=== PATIENT | male | born 1945 | race Caucasian/White ===

== ENCOUNTER 2016-06-28 14:25 | Outpatient (RCR) | payer MEDICARE ==
[2016-04-30 13:20] LABS: BASOPHILS % (AUTO) 0 % (0-10); EOSINOPHILS # (AUTO) 0.1 10^3/uL (0.0-0.3); EOSINOPHILS % (AUTO) 2 % (0-10); LYMPHOCYTES # (AUTO) 0.7 X 10^3 (1.0-4.0); LYMPHOCYTES % (AUTO) 14 % (12-44); MEAN CORPUSCULAR HEMOGLOBIN 31 PG (25-34); MEAN CORPUSCULAR HGB CONC 34 G/DL (32-36); MEAN CORPUSCULAR VOLUME 91 FL (80-99); MEAN PLATELET VOLUME 9.3 FL (7.4-10.4); MONOCYTES # (AUTO) 1.2 X 10^3 (0.0-1.0); MONOCYTES % (AUTO) 23 % (0-12); NEUTROPHILS % (AUTO) 60 % (42-75); PLATELET COUNT 160 10^3/uL (130-400); RED BLOOD COUNT 4.03 10^6/uL (4.35-5.85); RED CELL DISTRIBUTION WIDTH 14.1 % (10.0-14.5)
[2016-04-30 13:49] LABS: ALBUMIN 3.9 G/DL (3.2-4.5); BILIRUBIN,TOTAL 0.7 MG/DL (0.1-1.0); CALCIUM 8.6 MG/DL (8.5-10.1); CREATININE SERUM 1.4 MG/DL (0.60-1.30); POTASSIUM 3.6 MMOL/L (3.6-5.0); TOTAL PROTEIN 6.3 G/DL (6.4-8.2)
[~2016-06-28] VITALS: Ht 180.3 cm; Wt 94.8 kg
[2016-06-28 11:08] LABS: BASOPHILS % (AUTO) 0 % (0-10); EOSINOPHILS # (AUTO) 0.1 10^3/uL (0.0-0.3); EOSINOPHILS % (AUTO) 2 % (0-10); LYMPHOCYTES # (AUTO) 0.9 X 10^3 (1.0-4.0); LYMPHOCYTES % (AUTO) 16 % (12-44); MEAN CORPUSCULAR HEMOGLOBIN 31 PG (25-34); MEAN CORPUSCULAR HGB CONC 34 G/DL (32-36); MEAN CORPUSCULAR VOLUME 91 FL (80-99); MEAN PLATELET VOLUME 9.3 FL (7.4-10.4); MONOCYTES # (AUTO) 1.1 X 10^3 (0.0-1.0); MONOCYTES % (AUTO) 20 % (0-12); NEUTROPHILS # (AUTO) 3.3 X 10^3 (1.8-7.8); NEUTROPHILS % (AUTO) 62 % (42-75); PLATELET COUNT 184 10^3/uL (130-400); RED BLOOD COUNT 4.19 10^6/uL (4.35-5.85); RED CELL DISTRIBUTION WIDTH 14.3 % (10.0-14.5); WHITE BLOOD COUNT 5.3 10^3/uL (4.3-11.0)
[2016-06-28 11:37] LABS: ALBUMIN 4.2 G/DL (3.2-4.5); BILIRUBIN,TOTAL 0.7 MG/DL (0.1-1.0); CALCIUM 8.8 MG/DL (8.5-10.1); CREATININE SERUM 1.27 MG/DL (0.60-1.30); POTASSIUM 3.9 MMOL/L (3.6-5.0); TOTAL PROTEIN 6.4 G/DL (6.4-8.2)
[~2016-06-28 14:25] MED LIST: ACET500C11 PO; ACETAMINOPHEN 325 MG TAB (TYLENOL) CANCER CTR PO PRN; ACETAMINOPHEN 500 MG TAB (TYLENOL) CANCER CTR ONE; ALLP100T PO; AMLO5TAB2 PO; ATOR40TA70 PO; CALC0.253 PO; CHOL200018 PO; FLC1T PO; HCT25T PO; HYDR-757 PO; INSU100I10 SQ; LISI20TA PO; MERCAPTOPURINE PO; NS IV SCH; OXYC-199 PO; PURINETHOL PO; RITUXIMAB FOR IV SCH; RITUXIMAB IV SCH; SIMV40TA2 PO; SIMV40TA4 PO; diphenhydrAMINE 25 MG TAB (BENADRYL) CANCER CENTER PO SCH
== END 2016-07-02 | disposition home or self-care (01) ==
LOC: ONC 14:25
PROVIDERS: ATTEND Internal Medicine Hematology & Oncology
DX: Z51.11 Encounter for antineoplastic chemotherapy (principal); C85.86 Other specified types of non-Hodgkin lymphoma, intrapelvic lymph nodes; D63.1 Anemia in chronic kidney disease; N18.3 Chronic kidney disease, stage 3 (moderate); Z79.899 Other long term (current) drug therapy; Z45.2 Encounter for adjustment and management of vascular access device
CPT/HCPCS: 36591; 80053; 83615; 85025; 96413; 96523; 99213

== ENCOUNTER 2016-10-18 08:53 | Outpatient (RCR) | payer MEDICARE ==
[2016-08-23 08:44] LABS: BASOPHILS % (AUTO) 1 % (0-10); EOSINOPHILS # (AUTO) 0.1 10^3/uL (0.0-0.3); EOSINOPHILS % (AUTO) 2 % (0-10); LYMPHOCYTES # (AUTO) 0.9 X 10^3 (1.0-4.0); LYMPHOCYTES % (AUTO) 17 % (12-44); MEAN CORPUSCULAR HEMOGLOBIN 31 PG (25-34); MEAN CORPUSCULAR HGB CONC 35 G/DL (32-36); MEAN CORPUSCULAR VOLUME 91 FL (80-99); MEAN PLATELET VOLUME 9.7 FL (7.4-10.4); MONOCYTES % (AUTO) 20 % (0-12); NEUTROPHILS # (AUTO) 3.2 X 10^3 (1.8-7.8); NEUTROPHILS % (AUTO) 61 % (42-75); PLATELET COUNT 149 10^3/uL (130-400); RED BLOOD COUNT 4.22 10^6/uL (4.35-5.85); RED CELL DISTRIBUTION WIDTH 14.3 % (10.0-14.5); WHITE BLOOD COUNT 5.2 10^3/uL (4.3-11.0)
[2016-08-23 09:08] LABS: ALBUMIN 3.8 G/DL (3.2-4.5); BILIRUBIN,TOTAL 0.7 MG/DL (0.1-1.0); CALCIUM 8.9 MG/DL (8.5-10.1); CREATININE SERUM 1.22 MG/DL (0.60-1.30); POTASSIUM 4.1 MMOL/L (3.6-5.0); TOTAL PROTEIN 6.1 G/DL (6.4-8.2)
[~2016-10-18] VITALS: Ht 180.3 cm; Wt 94.8 kg
[~2016-10-18 08:53] MED LIST changes: -ACETAMINOPHEN 500 MG TAB (TYLENOL) CANCER CTR ONE; +ALTEPLASE 2 MG (CATHFLO) CANCER CENTER IV ONE
[2016-10-18 09:15] LABS: BASOPHILS % (AUTO) 1 % (0-10); EOSINOPHILS # (AUTO) 0.1 10^3/uL (0.0-0.3); EOSINOPHILS % (AUTO) 3 % (0-10); LYMPHOCYTES # (AUTO) 0.8 X 10^3 (1.0-4.0); LYMPHOCYTES % (AUTO) 21 % (12-44); MEAN CORPUSCULAR HEMOGLOBIN 30 PG (25-34); MEAN CORPUSCULAR HGB CONC 33 G/DL (32-36); MEAN CORPUSCULAR VOLUME 91 FL (80-99); MEAN PLATELET VOLUME 9.6 FL (7.4-10.4); MONOCYTES # (AUTO) 0.8 X 10^3 (0.0-1.0); MONOCYTES % (AUTO) 19 % (0-12); NEUTROPHILS # (AUTO) 2.3 X 10^3 (1.8-7.8); NEUTROPHILS % (AUTO) 57 % (42-75); PLATELET COUNT 154 10^3/uL (130-400); RED BLOOD COUNT 4.19 10^6/uL (4.35-5.85); RED CELL DISTRIBUTION WIDTH 14.5 % (10.0-14.5); WHITE BLOOD COUNT 4.1 10^3/uL (4.3-11.0)
[2016-10-18 09:44] LABS: BILIRUBIN,TOTAL 0.7 MG/DL (0.1-1.0); CALCIUM 8.5 MG/DL (8.5-10.1); CREATININE SERUM 1.5 MG/DL (0.60-1.30); POTASSIUM 3.8 MMOL/L (3.6-5.0); TOTAL PROTEIN 6.2 G/DL (6.4-8.2)
== END 2016-10-24 | disposition home or self-care (01) ==
LOC: ONC 08:53
PROVIDERS: ATTEND Internal Medicine Hematology & Oncology
DX: Z51.11 Encounter for antineoplastic chemotherapy (principal); C85.86 Other specified types of non-Hodgkin lymphoma, intrapelvic lymph nodes; D63.1 Anemia in chronic kidney disease; N18.3 Chronic kidney disease, stage 3 (moderate); Z79.899 Other long term (current) drug therapy; Z45.2 Encounter for adjustment and management of vascular access device
CPT/HCPCS: 36591; 36593; 80053; 83615; 85025; 96413; 96523; 99213

== ENCOUNTER 2017-02-07 08:25 | Outpatient (RCR) | payer MEDICARE ==
[2016-12-13 09:07] LABS: BASOPHILS % (AUTO) 1 % (0-10); EOSINOPHILS # (AUTO) 0.1 10^3/uL (0.0-0.3); EOSINOPHILS % (AUTO) 1 % (0-10); LYMPHOCYTES # (AUTO) 1.1 X 10^3 (1.0-4.0); LYMPHOCYTES % (AUTO) 22 % (12-44); MEAN CORPUSCULAR HEMOGLOBIN 30 PG (25-34); MEAN CORPUSCULAR HGB CONC 33 G/DL (32-36); MEAN CORPUSCULAR VOLUME 91 FL (80-99); MEAN PLATELET VOLUME 9.8 FL (7.4-10.4); MONOCYTES # (AUTO) 0.9 X 10^3 (0.0-1.0); MONOCYTES % (AUTO) 18 % (0-12); NEUTROPHILS % (AUTO) 58 % (42-75); PLATELET COUNT 154 10^3/uL (130-400); RED BLOOD COUNT 4.37 10^6/uL (4.35-5.85); RED CELL DISTRIBUTION WIDTH 14.4 % (10.0-14.5); WHITE BLOOD COUNT 5.1 10^3/uL (4.3-11.0)
[2016-12-13 09:27] LABS: ALBUMIN 4.3 GM/DL (3.2-4.5); BILIRUBIN,TOTAL 0.9 MG/DL (0.1-1.0); CALCIUM 9.6 MG/DL (8.5-10.1); CREATININE SERUM 1.21 MG/DL (0.60-1.30); POTASSIUM 3.9 MMOL/L (3.6-5.0); TOTAL PROTEIN 5.9 GM/DL (6.4-8.2)
[~2017-02-07] VITALS: Ht 180.3 cm; Wt 93.9 kg
[~2017-02-07 08:25] MED LIST changes: -ALTEPLASE 2 MG (CATHFLO) CANCER CENTER IV ONE
[2017-02-07 08:56] LABS: BASOPHILS % (AUTO) 1 % (0-10); EOSINOPHILS # (AUTO) 0.1 10^3/uL (0.0-0.3); EOSINOPHILS % (AUTO) 2 % (0-10); LYMPHOCYTES # (AUTO) 0.8 X 10^3 (1.0-4.0); LYMPHOCYTES % (AUTO) 17 % (12-44); MEAN CORPUSCULAR HEMOGLOBIN 31 PG (25-34); MEAN CORPUSCULAR HGB CONC 34 G/DL (32-36); MEAN CORPUSCULAR VOLUME 91 FL (80-99); MEAN PLATELET VOLUME 9.9 FL (7.4-10.4); MONOCYTES # (AUTO) 0.9 X 10^3 (0.0-1.0); MONOCYTES % (AUTO) 19 % (0-12); NEUTROPHILS # (AUTO) 2.8 X 10^3 (1.8-7.8); NEUTROPHILS % (AUTO) 61 % (42-75); PLATELET COUNT 162 10^3/uL (130-400); RED BLOOD COUNT 4.21 10^6/uL (4.35-5.85); RED CELL DISTRIBUTION WIDTH 14.3 % (10.0-14.5); WHITE BLOOD COUNT 4.5 10^3/uL (4.3-11.0)
[2017-02-07 09:09] LABS: ALBUMIN 3.9 GM/DL (3.2-4.5); BILIRUBIN,TOTAL 0.7 MG/DL (0.1-1.0); CALCIUM 9.1 MG/DL (8.5-10.1); CREATININE SERUM 1.33 MG/DL (0.60-1.30); TOTAL PROTEIN 6.2 GM/DL (6.4-8.2)
== END 2017-02-13 | disposition home or self-care (01) ==
LOC: ONC 08:25
PROVIDERS: ATTEND Internal Medicine Hematology & Oncology
DX: Z51.11 Encounter for antineoplastic chemotherapy (principal); C85.86 Other specified types of non-Hodgkin lymphoma, intrapelvic lymph nodes; D63.1 Anemia in chronic kidney disease; N18.3 Chronic kidney disease, stage 3 (moderate); Z79.899 Other long term (current) drug therapy; Z45.2 Encounter for adjustment and management of vascular access device
CPT/HCPCS: 36591; 80053; 83615; 85025; 96413; 96415; 96523

== ENCOUNTER 2017-03-07 12:47 | Outpatient (RCR) | payer MEDICARE ==
[~2017-03-07 12:47] MED LIST changes: -ACETAMINOPHEN 325 MG TAB (TYLENOL) CANCER CTR PO PRN; -NS IV SCH; -RITUXIMAB FOR IV SCH; -RITUXIMAB IV SCH; -diphenhydrAMINE 25 MG TAB (BENADRYL) CANCER CENTER PO SCH
== END 2017-03-30 | disposition home or self-care (01) ==
LOC: ONC 12:47
PROVIDERS: ATTEND Internal Medicine Hematology & Oncology
DX: C85.86 Other specified types of non-Hodgkin lymphoma, intrapelvic lymph nodes (principal); D63.1 Anemia in chronic kidney disease; N18.3 Chronic kidney disease, stage 3 (moderate); Z79.899 Other long term (current) drug therapy; Z45.2 Encounter for adjustment and management of vascular access device
CPT/HCPCS: 96523

== ENCOUNTER 2017-05-02 08:33 | Outpatient (RCR) | payer MEDICARE ==
[2017-04-04 09:14] LABS: BASOPHILS % (AUTO) 0 % (0-10); EOSINOPHILS # (AUTO) 0.1 10^3/uL (0.0-0.3); EOSINOPHILS % (AUTO) 2 % (0-10); LYMPHOCYTES # (AUTO) 0.7 X 10^3 (1.0-4.0); LYMPHOCYTES % (AUTO) 13 % (12-44); MEAN CORPUSCULAR HEMOGLOBIN 31 PG (25-34); MEAN CORPUSCULAR HGB CONC 34 G/DL (32-36); MEAN CORPUSCULAR VOLUME 91 FL (80-99); MEAN PLATELET VOLUME 9.7 FL (7.4-10.4); MONOCYTES # (AUTO) 1.3 X 10^3 (0.0-1.0); MONOCYTES % (AUTO) 25 % (0-12); NEUTROPHILS # (AUTO) 3.1 X 10^3 (1.8-7.8); NEUTROPHILS % (AUTO) 59 % (42-75); PLATELET COUNT 161 10^3/uL (130-400); RED BLOOD COUNT 4.35 10^6/uL (4.35-5.85); WHITE BLOOD COUNT 5.2 10^3/uL (4.3-11.0)
[2017-04-04 09:33] LABS: ALBUMIN 4.2 GM/DL (3.2-4.5); BILIRUBIN,TOTAL 0.9 MG/DL (0.1-1.0); CALCIUM 9.3 MG/DL (8.5-10.1); CREATININE SERUM 1.19 MG/DL (0.60-1.30); TOTAL PROTEIN 6.8 GM/DL (6.4-8.2)
[~2017-05-02 08:33] MED LIST changes: +ACETAMINOPHEN 325 MG TAB (TYLENOL) CANCER CTR PO PRN; +NS IV SCH; +RITUXIMAB FOR IV SCH; +RITUXIMAB IV SCH; +diphenhydrAMINE 25 MG TAB (BENADRYL) CANCER CENTER PO SCH
== END 2017-05-29 11:38 | disposition home or self-care (01) ==
LOC: ONC 08:33
PROVIDERS: ATTEND Internal Medicine Hematology & Oncology
DX: Z51.11 Encounter for antineoplastic chemotherapy (principal); C85.86 Other specified types of non-Hodgkin lymphoma, intrapelvic lymph nodes; D63.1 Anemia in chronic kidney disease; N18.3 Chronic kidney disease, stage 3 (moderate); Z79.899 Other long term (current) drug therapy
CPT/HCPCS: 36591; 80053; 83615; 85025; 96413; 96523

== ENCOUNTER 2017-08-22 08:29 | Outpatient (RCR) | payer MEDICARE ==
[2017-05-30 10:50] LABS: BASOPHILS # (AUTO) 0.1 10^3/uL (0.0-0.1); BASOPHILS % (AUTO) 1 % (0-10); EOSINOPHILS # (AUTO) 0.2 10^3/uL (0.0-0.3); EOSINOPHILS % (AUTO) 3 % (0-10); HEMATOCRIT 38 % (40-54); HEMOGLOBIN 12.9 G/DL (13.3-17.7); LYMPHOCYTES # (AUTO) 1.4 X 10^3 (1.0-4.0); LYMPHOCYTES % (AUTO) 24 % (12-44); MEAN CORPUSCULAR HEMOGLOBIN 31 PG (25-34); MEAN CORPUSCULAR HGB CONC 34 G/DL (32-36); MEAN CORPUSCULAR VOLUME 91 FL (80-99); MEAN PLATELET VOLUME 9.5 FL (7.4-10.4); MONOCYTES # (AUTO) 1.2 X 10^3 (0.0-1.0); MONOCYTES % (AUTO) 21 % (0-12); NEUTROPHILS # (AUTO) 3.1 X 10^3 (1.8-7.8); NEUTROPHILS % (AUTO) 52 % (42-75); PLATELET COUNT 179 10^3/uL (130-400); RED BLOOD COUNT 4.17 10^6/uL (4.35-5.85); RED CELL DISTRIBUTION WIDTH 14.3 % (10.0-14.5); WHITE BLOOD COUNT 5.9 10^3/uL (4.3-11.0)
[2017-05-30 11:12] LABS: ALANINE AMINOTRANSFERASE 30 U/L (0-55); ALBUMIN 4.1 GM/DL (3.2-4.5); ALKALINE PHOSPHATASE 136 U/L (40-136); BILIRUBIN,TOTAL 0.8 MG/DL (0.1-1.0); BUN/CREATININE RATIO 23; CALCIUM 9.2 MG/DL (8.5-10.1); CARBON DIOXIDE 26 MMOL/L (21-32); CHLORIDE 101 MMOL/L (98-107); CREATININE SERUM 1.18 MG/DL (0.60-1.30); GFR ESTIMATED > 60; GLUCOSE 113 MG/DL (70-105); POTASSIUM 3.7 MMOL/L (3.6-5.0); SODIUM 137 MMOL/L (135-145); TOTAL PROTEIN 6.7 GM/DL (6.4-8.2)
[~2017-08-22] VITALS: Ht 180.3 cm; Wt 95.3 kg
== END 2017-08-28 | disposition home or self-care (01) ==
LOC: ONC 08:29
PROVIDERS: ATTEND Internal Medicine Hematology & Oncology
DX: Z51.11 Encounter for antineoplastic chemotherapy (principal); C85.86 Other specified types of non-Hodgkin lymphoma, intrapelvic lymph nodes; E11.22 Type 2 diabetes mellitus with diabetic chronic kidney disease; I12.9 Hypertensive chronic kidney disease with stage 1 through stage 4 chronic kidney disease, or unspecified chronic kidney disease; D63.1 Anemia in chronic kidney disease; N18.3 Chronic kidney disease, stage 3 (moderate); Z79.899 Other long term (current) drug therapy; Z79.4 Long term (current) use of insulin; Z45.2 Encounter for adjustment and management of vascular access device
CPT/HCPCS: 36591; 80053; 83615; 85025; 96413; 96523

== ENCOUNTER 2017-12-09 08:31 | Outpatient (RCR) | payer MEDICARE ==
[2017-09-16 13:30] LABS: BASOPHILS % (AUTO) 1 % (0-10); EOSINOPHILS # (AUTO) 0.1 10^3/uL (0.0-0.3); EOSINOPHILS % (AUTO) 2 % (0-10); HEMATOCRIT 40 % (40-54); HEMOGLOBIN 13.9 G/DL (13.3-17.7); LYMPHOCYTES # (AUTO) 1.3 X 10^3 (1.0-4.0); LYMPHOCYTES % (AUTO) 23 % (12-44); MEAN CORPUSCULAR HEMOGLOBIN 31 PG (25-34); MEAN CORPUSCULAR HGB CONC 35 G/DL (32-36); MEAN CORPUSCULAR VOLUME 89 FL (80-99); MEAN PLATELET VOLUME 9.8 FL (7.4-10.4); MONOCYTES # (AUTO) 1.1 X 10^3 (0.0-1.0); MONOCYTES % (AUTO) 21 % (0-12); NEUTROPHILS # (AUTO) 2.9 X 10^3 (1.8-7.8); NEUTROPHILS % (AUTO) 53 % (42-75); PLATELET COUNT 174 10^3/uL (130-400); RED BLOOD COUNT 4.48 10^6/uL (4.35-5.85); RED CELL DISTRIBUTION WIDTH 13.9 % (10.0-14.5); WHITE BLOOD COUNT 5.4 10^3/uL (4.3-11.0)
[2017-09-16 13:52] LABS: ALBUMIN 4.3 GM/DL (3.2-4.5); BILIRUBIN,TOTAL 0.7 MG/DL (0.1-1.0); CALCIUM 9.1 MG/DL (8.5-10.1); CREATININE SERUM 1.43 MG/DL (0.60-1.30); POTASSIUM 3.7 MMOL/L (3.6-5.0); TOTAL PROTEIN 6.7 GM/DL (6.4-8.2)
== END 2017-12-15 | disposition home or self-care (01) ==
LOC: ONC 08:31
PROVIDERS: ATTEND Internal Medicine Hematology & Oncology
DX: Z51.11 Encounter for antineoplastic chemotherapy (principal); C85.86 Other specified types of non-Hodgkin lymphoma, intrapelvic lymph nodes; E11.22 Type 2 diabetes mellitus with diabetic chronic kidney disease; I12.9 Hypertensive chronic kidney disease with stage 1 through stage 4 chronic kidney disease, or unspecified chronic kidney disease; D63.1 Anemia in chronic kidney disease; N18.3 Chronic kidney disease, stage 3 (moderate); Z79.899 Other long term (current) drug therapy; Z79.4 Long term (current) use of insulin; Z45.2 Encounter for adjustment and management of vascular access device
CPT/HCPCS: 36591; 80053; 83615; 85025; 96413; 96523

== ENCOUNTER → 2018-01-20 | Outpatient (CLI) | payer MEDICARE ==
[~2018-01-20] MED LIST changes: -ACETAMINOPHEN 325 MG TAB (TYLENOL) CANCER CTR PO PRN; -NS IV SCH; -RITUXIMAB FOR IV SCH; -RITUXIMAB IV SCH; -diphenhydrAMINE 25 MG TAB (BENADRYL) CANCER CENTER PO SCH
[2018-01-20 10:06] LABS: ALBUMIN 4.4 GM/DL (3.2-4.5); CALCIUM 9.5 MG/DL (8.5-10.1); CREATININE SERUM 1.29 MG/DL (0.60-1.30); PHOSPHORUS 3.4 MG/DL (2.3-4.7); POTASSIUM 3.8 MMOL/L (3.6-5.0); URIC ACID 6.8 MG/DL (2.6-7.2)
== END ==
LOC: LAB 09:29
PROVIDERS: ATTEND Internal Medicine Nephrology
DX: N18.3 Chronic kidney disease, stage 3 (moderate) (principal)
CPT/HCPCS: 36415; 80069; 82550; 84550

== ENCOUNTER 2018-02-27 10:34 | Outpatient (RCR) | payer MEDICARE ==
--- NOTE | 2018-02-24 14:09 | Diagnostic Imaging Report ---
EXAMINATION: CT of the neck, chest, abdomen, pelvis with contrast. INDICATION: Lymphoma. TECHNIQUE: Contiguous axial sections were taken from the midportion of the skull to the pubic symphysis following administration of intravenous contrast. Oral contrast was also administered. A delayed series through the abdomen and pelvis was obtained as well. Sagittal and coronal reconstructed images were also performed. HISTORY: The previous PET/CT exam performed on 03/30/2010 failed to show any sign of neoplastic disease. The CT abdomen exam of 03/10/2014 failed to show any evidence for neoplasm as well although that study did identify acute appendicitis. FINDINGS: The images through the neck fail to show any sign of a mass or adenopathy. The parotid and submandibular glands are unremarkable. In the interval since the previous study, a small 6.6 mm rounded area of low density has developed in the right lobe of the thyroid. There is also now a 3 mm low density nodule in the left lobe of the thyroid. I suspect that these findings are benign but I would recommend that ultrasound be performed for further study. The tracheal air shadow is not compressed or deviated. The intracranial contents, where visualized, are unremarkable. The orbits are symmetrical and within normal limits. The sinuses are generally clear. The images through the thorax show that the heart size is within normal limits. There are coronary artery calcifications evident. There is no mediastinal or hilar adenopathy. There is no sign of any axillary adenopathy either. The lungs are generally clear and well aerated. There is no pleural effusion identified. The aorta is not abnormally dilated and there is no sign of a dissection. There is no defect within the pulmonary arteries to indicate a pulmonary embolus. The liver, spleen, pancreas, adrenals, gallbladder, kidneys, aorta, and inferior vena cava are unremarkable for an acute abnormality. In the interval since the prior exam, the 2.1 cm cyst in the midportion of the right kidney has increased in size. This cyst now measures 4.5 cm. The stomach is partially filled with oral contrast and consequently difficult to assess. There is no retrocrural, periaortic, retroperitoneal, iliac chain, or inguinal adenopathy evident. The images through the pelvis show that there is diverticulosis of the sigmoid and descending colon without evidence for acute diverticulitis. The appendix is surgically absent. The urinary bladder and prostate gland are grossly unremarkable. The scar formation in the region of the right inguinal canal seen on the previous exam is again evident and no different. The bone windows show no sign of a fracture or of a destructive lesion; however, there are irregular areas of mixed density involving both femoral heads. These findings are similar to the prior exam. In addition there are areas of increased density within the right fourth, seventh and ninth ribs and in the left ninth rib. These findings could be secondary to neoplastic disease as they do represent a change from the previous study. IMPRESSION: 1. There is no acute abnormality of the neck, chest, abdomen, or pelvis. 2. There is no adenopathy identified to suggest recurrent lymphoma. The spleen is also normal in appearance. However the areas of increased density within the ribs bilaterally could be related to neoplastic disease. A nuclear medicine bone scan is pending for further study. 3. Ultrasound would be recommended for further evaluation of the low density nodules in each lobe of the thyroid. 4. There is diverticulosis of the sigmoid colon without evidence for acute diverticulitis. Dictated by: Dictated on workstation # [id number]
[~2018-02-27 10:34] MED LIST changes: +1/2 NS IV SCH; +BARIUM SUSPENSION 2.1% (VANILLA SILQ) 450 ML PO ONE; +CATHETER FLUSH 10 ML SYR IV PRN; +IOHEXOL 350 MG/ML 100 ML (OMNIPAQUE 350) VIAL IV ONE; +NS 100 ML (IVPB) BAG IV ONE; +SODIUM BICARBONATE IV SCH
== END 2018-02-28 | disposition home or self-care (01) ==
LOC: ONC 10:34
PROVIDERS: ATTEND Internal Medicine Hematology & Oncology
DX: C85.86 Other specified types of non-Hodgkin lymphoma, intrapelvic lymph nodes (principal); E11.22 Type 2 diabetes mellitus with diabetic chronic kidney disease; I12.9 Hypertensive chronic kidney disease with stage 1 through stage 4 chronic kidney disease, or unspecified chronic kidney disease; D63.1 Anemia in chronic kidney disease; N18.3 Chronic kidney disease, stage 3 (moderate); Z79.899 Other long term (current) drug therapy; Z79.4 Long term (current) use of insulin
CPT/HCPCS: 70491; 71260; 74176; 96360; 96361; 99213

== ENCOUNTER → 2018-05-12 | Outpatient (CLI) | payer MEDICARE ==
[~2018-05-12] MED LIST changes: -1/2 NS IV SCH; +LIDOCAINE 1% INJ 20 ML 20 ML VIAL ONE; -NS 100 ML (IVPB) BAG IV ONE; +NS 250 ML (IVPB) BAG IV ONE; +RECEIVED CONTRAST (Hold Metformin) IV SCH; -SODIUM BICARBONATE IV SCH
--- NOTE | 2018-05-12 14:53 | Diagnostic Imaging Report ---
INDICATION: Non-Hodgkin's lymphoma. TECHNIQUE: Patient was administered 25.3 mCi technetium 99m MDP intravenously and whole-body imaging was performed after a three hour delay. COMPARISON: Correlation is made with prior exam from 02/24/2018. FINDINGS: Uptake of activity by the axial and appendicular skeleton is seen. There is uptake by the kidneys with excretion to the urinary bladder. Abnormal uptake in the ribs bilaterally appear similar to prior exam. There is also increased uptake involving the distal portion of the right humerus with more significant uptake identified in the distal aspect of the left humerus. These areas are concerning for neoplastic involvement. No other suspicious foci are seen. IMPRESSION: Bilateral rib and bilateral humerus uptake, similar to the examination from 02/24/2018. No new foci of abnormal tracer accumulation is identified. Dictated by: Dictated on workstation # [id number]
== END ==
LOC: CARD 11:00
PROVIDERS: ATTEND Internal Medicine Hematology & Oncology
DX: Z01.89 Encounter for other specified special examinations (principal); C85.90 Non-Hodgkin lymphoma, unspecified, unspecified site
CPT/HCPCS: 78306

== ENCOUNTER 2018-06-16 08:22 | Outpatient (RCR) | payer MEDICARE ==
[2018-04-17 09:59] LABS: BASOPHILS % (AUTO) 0 % (0-10); EOSINOPHILS % (AUTO) 1 % (0-10); HEMATOCRIT 39 % (40-54); HEMOGLOBIN 13.4 G/DL (13.3-17.7); LYMPHOCYTES # (AUTO) 0.6 X 10^3 (1.0-4.0); LYMPHOCYTES % (AUTO) 12 % (12-44); MEAN CORPUSCULAR HEMOGLOBIN 31 PG (25-34); MEAN CORPUSCULAR HGB CONC 34 G/DL (32-36); MEAN CORPUSCULAR VOLUME 91 FL (80-99); MEAN PLATELET VOLUME 8.6 FL (7.4-10.4); MONOCYTES # (AUTO) 1.1 X 10^3 (0.0-1.0); MONOCYTES % (AUTO) 22 % (0-12); NEUTROPHILS # (AUTO) 3.4 X 10^3 (1.8-7.8); NEUTROPHILS % (AUTO) 65 % (42-75); PLATELET COUNT 187 10^3/uL (130-400); RED BLOOD COUNT 4.31 10^6/uL (4.35-5.85); RED CELL DISTRIBUTION WIDTH 14.3 % (10.0-14.5); WHITE BLOOD COUNT 5.2 10^3/uL (4.3-11.0)
[2018-04-17 10:17] LABS: ALBUMIN 4.5 GM/DL (3.2-4.5); BILIRUBIN,TOTAL 0.7 MG/DL (0.1-1.0); CALCIUM 9.7 MG/DL (8.5-10.1); CREATININE SERUM 1.41 MG/DL (0.60-1.30); POTASSIUM 4.2 MMOL/L (3.6-5.0)
[2018-05-08 11:45] LABS: BASOPHILS % (AUTO) 0 % (0-10); EOSINOPHILS # (AUTO) 0.1 10^3/uL (0.0-0.3); EOSINOPHILS % (AUTO) 1 % (0-10); HEMATOCRIT 37 % (40-54); HEMOGLOBIN 12.5 G/DL (13.3-17.7); LYMPHOCYTES # (AUTO) 1.1 X 10^3 (1.0-4.0); LYMPHOCYTES % (AUTO) 23 % (12-44); MEAN CORPUSCULAR HEMOGLOBIN 31 PG (25-34); MEAN CORPUSCULAR HGB CONC 34 G/DL (32-36); MEAN CORPUSCULAR VOLUME 93 FL (80-99); MEAN PLATELET VOLUME 9.3 FL (7.4-10.4); MONOCYTES # (AUTO) 1.1 X 10^3 (0.0-1.0); MONOCYTES % (AUTO) 22 % (0-12); NEUTROPHILS # (AUTO) 2.7 X 10^3 (1.8-7.8); NEUTROPHILS % (AUTO) 54 % (42-75); PLATELET COUNT 179 10^3/uL (130-400); RED CELL DISTRIBUTION WIDTH 14.5 % (10.0-14.5)
[2018-05-08 12:12] LABS: ALBUMIN 4.3 GM/DL (3.2-4.5); BILIRUBIN,TOTAL 0.7 MG/DL (0.1-1.0); CALCIUM 9.3 MG/DL (8.5-10.1); CREATININE SERUM 1.24 MG/DL (0.60-1.30); TOTAL PROTEIN 6.5 GM/DL (6.4-8.2)
[~2018-06-16 08:22] MED LIST changes: +1/2 NS IV SCH; +ALTEPLASE 2 MG (CATHFLO) CANCER CENTER IV ONE; -BARIUM SUSPENSION 2.1% (VANILLA SILQ) 450 ML PO ONE; -CATHETER FLUSH 10 ML SYR IV PRN; -IOHEXOL 350 MG/ML 100 ML (OMNIPAQUE 350) VIAL IV ONE; -LIDOCAINE 1% INJ 20 ML 20 ML VIAL ONE; -NS 250 ML (IVPB) BAG IV ONE; -RECEIVED CONTRAST (Hold Metformin) IV SCH; +SODIUM BICARBONATE IV SCH
== END 2018-07-16 | disposition home or self-care (01) ==
LOC: ONC 08:22
PROVIDERS: ATTEND Internal Medicine Hematology & Oncology
DX: C85.86 Other specified types of non-Hodgkin lymphoma, intrapelvic lymph nodes (principal); E11.22 Type 2 diabetes mellitus with diabetic chronic kidney disease; I12.9 Hypertensive chronic kidney disease with stage 1 through stage 4 chronic kidney disease, or unspecified chronic kidney disease; D63.1 Anemia in chronic kidney disease; N18.3 Chronic kidney disease, stage 3 (moderate); Z79.899 Other long term (current) drug therapy; Z79.4 Long term (current) use of insulin
CPT/HCPCS: 36415; 36593; 80053; 83615; 85025; 96365; 96366; 96523; 99213

== ENCOUNTER → 2018-09-11 | Outpatient (CLI) | payer MEDICARE ==
[~2018-09-11] MED LIST changes: -1/2 NS IV SCH; -ALTEPLASE 2 MG (CATHFLO) CANCER CENTER IV ONE; +BARIUM SUSPENSION 2.1% (VANILLA SILQ) 450 ML PO ONE; +HOLD METFORMIN - RECEIVED CONTRAST 20 ML VIAL IV SCH; +IOHEXOL 350 MG/ML 100 ML (OMNIPAQUE 350) VIAL IV ONE; +NS 100 ML (IVPB) BAG IV ONE; -SODIUM BICARBONATE IV SCH
--- NOTE | 2018-09-11 14:11 | Diagnostic Imaging Report ---
INDICATION: Follicular lymphoma. TECHNIQUE: Pre- and post-contrast axial imaging through the abdomen and pelvis with postcontrast axial imaging through the neck and chest was performed. COMPARISON: Comparison is made with prior CT from 05/12/2018. CT NECK: The visualized intracranial structures are unremarkable. Posterior nasopharynx, oropharynx, and larynx are unremarkable. Tiny low densities in both lobes of the thyroid gland appear stable. Bilateral submandibular and parotid glands are unremarkable. No cervical lymphadenopathy is detected. IMPRESSION: Stable CT neck since exam from 05/12/2018. No cervical lymphadenopathy is identified. CT CHEST: No axillary lymphadenopathy is identified. No mediastinal or hilar lymphadenopathy is identified. No pericardial or pleural fluid is detected. There is pleural thickening noted posteriorly in the right mid and lower posterior chest. Lungs are clear. No parenchymal mass, nodule, or infiltrate is identified. Sclerosis of the right lateral fourth rib with some associated pleural thickening appears to be increased when compared with prior exam. Sclerosis of the right posterolateral seventh rib with associated pleural thickening is also seen. Sclerosis of the left posterior 9th and 11th ribs is unchanged. IMPRESSION: 1. No evidence of thoracic lymphadenopathy. There is some increase in the amount of pleural thickening in the right chest when compared with prior exam, particularly at the level of the sclerosis of the right lateral fourth rib. The pleural thickening posteriorly at the base also may be slightly more prominent. No pulmonary parenchymal abnormality is seen. CT ABDOMEN AND PELVIS: The liver and gallbladder are unremarkable. No liver mass is seen. The pancreas and spleen are unremarkable. No adrenal mass is detected. Right renal cyst is stable. Left kidney is unremarkable. The aorta is non-aneurysmal. No central retroperitoneal or mesenteric lymphadenopathy is seen. Small and large bowel loops are normal in caliber. There appears to be diverticulosis of the sigmoid but no evidence of acute diverticulitis. No definite pelvic lymphadenopathy is identified. The bladder is unremarkable. Areas of sclerosis involving the left iliac bone appear to be stable. There is also some sclerosis of the right iliac bone, stable. IMPRESSION: Overall stable CT abdomen and pelvis when compared with examination from 05/12/2018. Dictated by: Dictated on workstation # [id number]
--- NOTE | 2018-09-11 19:36 | Diagnostic Imaging Report ---
INDICATION: Follicular lymphoma. TECHNIQUE: Patient was administered 24.6 mCi of technetium-99m MDP intravenously and whole-body imaging was performed after three-hour delay. COMPARISON: Correlation is made with prior exam from 05/12/2018. FINDINGS: Normal uptake of activity by the axial and appendicular skeleton is seen. There is uptake by the kidneys with excretion to the urinary bladder. Distal humeri were not completely included on today's study, therefore, evaluation for distal humerus uptake is limited. There does appear to be some uptake in the distal left humerus similar to prior study. Distal right humerus is not included. The vague uptake involving posterior ribs previously seen appears similar. No new foci or tracer accumulation is seen. IMPRESSION: Overall stable whole-body bone scan when compared to examination from 05/12/2018. Dictated by: Dictated on workstation # [id number]
== END ==
LOC: CARD 11:50
PROVIDERS: ATTEND Internal Medicine Hematology & Oncology
DX: C83.39 Diffuse large B-cell lymphoma, extranodal and solid organ sites (principal)
CPT/HCPCS: 70491; 71260; 74178; 78306

== ENCOUNTER 2018-10-09 08:29 | Outpatient (RCR) | payer MEDICARE ==
[2018-07-28 12:15] LABS: BASOPHILS % (AUTO) 1 % (0-10); EOSINOPHILS # (AUTO) 0.1 10^3/uL (0.0-0.3); EOSINOPHILS % (AUTO) 2 % (0-10); HEMATOCRIT 37 % (40-54); HEMOGLOBIN 12.5 G/DL (13.3-17.7); LYMPHOCYTES # (AUTO) 1.1 X 10^3 (1.0-4.0); LYMPHOCYTES % (AUTO) 21 % (12-44); MEAN CORPUSCULAR HEMOGLOBIN 32 PG (25-34); MEAN CORPUSCULAR HGB CONC 34 G/DL (32-36); MEAN CORPUSCULAR VOLUME 93 FL (80-99); MEAN PLATELET VOLUME 9.3 FL (7.4-10.4); MONOCYTES # (AUTO) 1.2 X 10^3 (0.0-1.0); MONOCYTES % (AUTO) 23 % (0-12); NEUTROPHILS # (AUTO) 2.8 X 10^3 (1.8-7.8); NEUTROPHILS % (AUTO) 54 % (42-75); PLATELET COUNT 163 10^3/uL (130-400); RED CELL DISTRIBUTION WIDTH 14.2 % (10.0-14.5); WHITE BLOOD COUNT 5.2 10^3/uL (4.3-11.0)
[2018-07-28 12:46] LABS: ALBUMIN 4.2 GM/DL (3.2-4.5); BILIRUBIN,TOTAL 0.7 MG/DL (0.1-1.0); CALCIUM 8.7 MG/DL (8.5-10.1); CREATININE SERUM 1.26 MG/DL (0.60-1.30); POTASSIUM 3.9 MMOL/L (3.6-5.0); TOTAL PROTEIN 6.2 GM/DL (6.4-8.2)
[2018-09-11 10:28] LABS: BASOPHILS % (AUTO) 1 % (0-10); EOSINOPHILS # (AUTO) 0.1 10^3/uL (0.0-0.3); EOSINOPHILS % (AUTO) 1 % (0-10); HEMATOCRIT 38 % (40-54); HEMOGLOBIN 12.6 G/DL (13.3-17.7); LYMPHOCYTES % (AUTO) 25 % (12-44); MEAN CORPUSCULAR HEMOGLOBIN 31 PG (25-34); MEAN CORPUSCULAR HGB CONC 33 G/DL (32-36); MEAN CORPUSCULAR VOLUME 93 FL (80-99); MEAN PLATELET VOLUME 9.7 FL (7.4-10.4); MONOCYTES # (AUTO) 0.8 X 10^3 (0.0-1.0); MONOCYTES % (AUTO) 18 % (0-12); NEUTROPHILS # (AUTO) 2.4 X 10^3 (1.8-7.8); NEUTROPHILS % (AUTO) 55 % (42-75); PLATELET COUNT 162 10^3/uL (130-400); RED CELL DISTRIBUTION WIDTH 14.5 % (10.0-14.5); WHITE BLOOD COUNT 4.2 10^3/uL (4.3-11.0)
[2018-09-11 10:44] LABS: ALBUMIN 4.2 GM/DL (3.2-4.5); BILIRUBIN,TOTAL 0.7 MG/DL (0.1-1.0); CREATININE SERUM 1.35 MG/DL (0.60-1.30); POTASSIUM 4.1 MMOL/L (3.6-5.0); TOTAL PROTEIN 6.4 GM/DL (6.4-8.2)
[~2018-10-09 08:29] MED LIST changes: -BARIUM SUSPENSION 2.1% (VANILLA SILQ) 450 ML PO ONE; -HOLD METFORMIN - RECEIVED CONTRAST 20 ML VIAL IV SCH; -IOHEXOL 350 MG/ML 100 ML (OMNIPAQUE 350) VIAL IV ONE; -NS 100 ML (IVPB) BAG IV ONE; +NS IV 1000 ML (CANCER CTR) 1,000 ML ONE
== END 2018-10-26 | disposition home or self-care (01) ==
LOC: ONC 08:29
PROVIDERS: ATTEND Internal Medicine Hematology & Oncology
DX: C85.86 Other specified types of non-Hodgkin lymphoma, intrapelvic lymph nodes (principal); E11.22 Type 2 diabetes mellitus with diabetic chronic kidney disease; I12.9 Hypertensive chronic kidney disease with stage 1 through stage 4 chronic kidney disease, or unspecified chronic kidney disease; D63.1 Anemia in chronic kidney disease; N18.3 Chronic kidney disease, stage 3 (moderate); Z79.899 Other long term (current) drug therapy; Z79.4 Long term (current) use of insulin; Z45.2 Encounter for adjustment and management of vascular access device
CPT/HCPCS: 36415; 36591; 70491; 71260; 74178; 78306; 80053; 83615; 85025; 96360; 96523; 99213

== ENCOUNTER → 2018-12-22 | Outpatient (CLI) | payer MEDICARE ==
[~2018-12-22] MED LIST changes: -NS IV 1000 ML (CANCER CTR) 1,000 ML ONE
--- NOTE | 2018-12-22 14:36 | Diagnostic Imaging Report ---
Indication: Non-Hodgkin's lymphoma. Patient was administered 27.0 mCi technetium 99m MDP intravenously and whole-body imaging was performed after 3 hour delay. Correlation is made with prior study from 09/11/2018. There is uptake of activity by the axial and appendicular skeleton. There is uptake by both kidneys with excretion to the urinary bladder. There has been interval development of 2 foci of increased uptake involving left-sided ribs. These appear to involve the anterior aspect of the left fifth and sixth anterior ribs. Clinical correlation to recent trauma at this location is recommended. No other abnormal foci are detected. Vague uptake in the posterior ribs described on prior imaging is unchanged. Impression: New foci of uptake involving left-sided ribs, as described. While this could be posttraumatic in nature, other etiologies cannot be entirely excluded. Clinical correlation to trauma at this location is recommended. Dictated by: Dictated on workstation # [id number]
== END ==
LOC: CARD 10:40
PROVIDERS: ATTEND Internal Medicine Hematology & Oncology
DX: Z01.89 Encounter for other specified special examinations (principal); C83.39 Diffuse large B-cell lymphoma, extranodal and solid organ sites; R93.7 Abnormal findings on diagnostic imaging of other parts of musculoskeletal system
CPT/HCPCS: 78306

== ENCOUNTER 2018-12-31 08:46 | Outpatient (RCR) | payer MEDICARE ==
[2018-11-06 09:31] LABS: BASOPHILS % (AUTO) 0 % (0-10); EOSINOPHILS % (AUTO) 0 % (0-10); HEMATOCRIT 39 % (40-54); HEMOGLOBIN 12.8 G/DL (13.3-17.7); LYMPHOCYTES % (AUTO) 11 % (12-44); MEAN CORPUSCULAR HEMOGLOBIN 30 PG (25-34); MEAN CORPUSCULAR HGB CONC 33 G/DL (32-36); MEAN CORPUSCULAR VOLUME 92 FL (80-99); MEAN PLATELET VOLUME 9.3 FL (7.4-10.4); MONOCYTES # (AUTO) 1.2 X 10^3 (0.0-1.0); MONOCYTES % (AUTO) 13 % (0-12); NEUTROPHILS # (AUTO) 6.7 X 10^3 (1.8-7.8); NEUTROPHILS % (AUTO) 76 % (42-75); PLATELET COUNT 172 10^3/uL (130-400); RED CELL DISTRIBUTION WIDTH 14.5 % (10.0-14.5); WHITE BLOOD COUNT 8.9 10^3/uL (4.3-11.0)
[2018-11-06 09:44] LABS: ALBUMIN 4.4 GM/DL (3.2-4.5); BILIRUBIN,TOTAL 0.6 MG/DL (0.1-1.0); CALCIUM 9.8 MG/DL (8.5-10.1); CREATININE SERUM 1.37 MG/DL (0.60-1.30); POTASSIUM 4.3 MMOL/L (3.6-5.0); TOTAL PROTEIN 6.6 GM/DL (6.4-8.2)
[2018-12-31 09:13] LABS: BASOPHILS % (AUTO) 0 % (0-10); EOSINOPHILS # (AUTO) 0.1 10^3/uL (0.0-0.3); EOSINOPHILS % (AUTO) 1 % (0-10); HEMATOCRIT 37 % (40-54); HEMOGLOBIN 12.3 G/DL (13.3-17.7); LYMPHOCYTES # (AUTO) 1.2 X 10^3 (1.0-4.0); LYMPHOCYTES % (AUTO) 15 % (12-44); MEAN CORPUSCULAR HEMOGLOBIN 31 PG (25-34); MEAN CORPUSCULAR HGB CONC 33 G/DL (32-36); MEAN CORPUSCULAR VOLUME 93 FL (80-99); MEAN PLATELET VOLUME 9.1 FL (7.4-10.4); MONOCYTES % (AUTO) 12 % (0-12); NEUTROPHILS # (AUTO) 5.9 X 10^3 (1.8-7.8); NEUTROPHILS % (AUTO) 71 % (42-75); PLATELET COUNT 167 10^3/uL (130-400); RED CELL DISTRIBUTION WIDTH 14.5 % (10.0-14.5); WHITE BLOOD COUNT 8.3 10^3/uL (4.3-11.0)
[2018-12-31 09:38] LABS: BILIRUBIN,TOTAL 0.5 MG/DL (0.1-1.0); CALCIUM 9.4 MG/DL (8.5-10.1); CREATININE SERUM 1.34 MG/DL (0.60-1.30); POTASSIUM 3.8 MMOL/L (3.6-5.0); TOTAL PROTEIN 6.3 GM/DL (6.4-8.2)
== END 2019-02-04 | disposition home or self-care (01) ==
LOC: ONC 08:46
PROVIDERS: ATTEND Internal Medicine Hematology & Oncology
DX: C85.86 Other specified types of non-Hodgkin lymphoma, intrapelvic lymph nodes (principal); E11.22 Type 2 diabetes mellitus with diabetic chronic kidney disease; I12.9 Hypertensive chronic kidney disease with stage 1 through stage 4 chronic kidney disease, or unspecified chronic kidney disease; D63.1 Anemia in chronic kidney disease; N18.3 Chronic kidney disease, stage 3 (moderate); Z79.899 Other long term (current) drug therapy; Z79.4 Long term (current) use of insulin; Z45.2 Encounter for adjustment and management of vascular access device
CPT/HCPCS: 36415; 36591; 80053; 83615; 85025; 96523

== ENCOUNTER 2019-05-05 08:25 | Outpatient (RCR) | payer MEDICARE ==
[2019-03-24 10:54] LABS: BASOPHILS % (AUTO) 0 % (0-10); EOSINOPHILS # (AUTO) 0.1 10^3/uL (0.0-0.3); EOSINOPHILS % (AUTO) 1 % (0-10); HEMATOCRIT 38 % (40-54); HEMOGLOBIN 12.7 G/DL (13.3-17.7); LYMPHOCYTES # (AUTO) 0.9 X 10^3 (1.0-4.0); LYMPHOCYTES % (AUTO) 10 % (12-44); MEAN CORPUSCULAR HEMOGLOBIN 31 PG (25-34); MEAN CORPUSCULAR HGB CONC 33 G/DL (32-36); MEAN CORPUSCULAR VOLUME 92 FL (80-99); MONOCYTES # (AUTO) 1.3 X 10^3 (0.0-1.0); MONOCYTES % (AUTO) 14 % (0-12); NEUTROPHILS # (AUTO) 7.2 X 10^3 (1.8-7.8); NEUTROPHILS % (AUTO) 76 % (42-75); PLATELET COUNT 176 10^3/uL (130-400); RED CELL DISTRIBUTION WIDTH 15.1 % (10.0-14.5); WHITE BLOOD COUNT 9.5 10^3/uL (4.3-11.0)
[2019-03-24 11:16] LABS: ALBUMIN 4.3 GM/DL (3.2-4.5); BILIRUBIN,TOTAL 0.8 MG/DL (0.1-1.0); CALCIUM 9.6 MG/DL (8.5-10.1); CREATININE SERUM 1.43 MG/DL (0.60-1.30); POTASSIUM 4.1 MMOL/L (3.6-5.0); TOTAL PROTEIN 6.8 GM/DL (6.4-8.2)
[~2019-05-05 08:25] MED LIST changes: +ALTEPLASE 2 MG (CATHFLO) CANCER CENTER IV ONE
== END 2019-05-12 | disposition home or self-care (01) ==
LOC: ONC 08:25
PROVIDERS: ATTEND Internal Medicine Hematology & Oncology
DX: C85.86 Other specified types of non-Hodgkin lymphoma, intrapelvic lymph nodes (principal); E11.22 Type 2 diabetes mellitus with diabetic chronic kidney disease; I12.9 Hypertensive chronic kidney disease with stage 1 through stage 4 chronic kidney disease, or unspecified chronic kidney disease; D63.1 Anemia in chronic kidney disease; N18.3 Chronic kidney disease, stage 3 (moderate); Z79.899 Other long term (current) drug therapy; Z79.4 Long term (current) use of insulin; Z45.2 Encounter for adjustment and management of vascular access device
CPT/HCPCS: 36593; 80053; 83615; 85025; 96523

== ENCOUNTER → 2019-06-12 | Outpatient (CLI) | payer MEDICARE ==
[~2019-06-12] MED LIST changes: -ALTEPLASE 2 MG (CATHFLO) CANCER CENTER IV ONE; +BARIUM SUSPENSION 2.1% (VANILLA SILQ) 450 ML PO ONE; +CATHETER FLUSH 10 ML SYR IV PRN; +HOLD METFORMIN - RECEIVED CONTRAST 20 ML VIAL IV SCH; +IOHEXOL 350 MG/ML 100 ML (OMNIPAQUE 350) VIAL IV ONE; +NS 100 ML (IVPB) BAG IV ONE
[2019-06-12] MEDS: CATHETER FLUSH 10 ML SYR IV PRN ×2 (11:07→11:43)
--- NOTE | 2019-06-12 12:22 | Diagnostic Imaging Report ---
EXAMINATION: CT Neck and Chest with contrast. CT Abdomen and Pelvis with and without intravenous contrast. TECHNIQUE: Multiple contiguous axial images were obtained through the neck, chest, abdomen and pelvis after the uneventful administration of intravenous contrast. Pre-contrast images of the abdomen and pelvis were also obtained. All CT scans use one or more of the following dose optimizing techniques: automated exposure control, MA and/or KvP adjustment based on a patient size and exam type, or iterative reconstruction. HISTORY: FOLLICULAR LYMPHOMA COMPARISON: 09/11/2018 FINDINGS: Neck CT: Scattered subcentimeter lymph nodes are seen in the neck. None are pathologically enlarged or abnormally enhancing. The muscles of the neck are normal. Vessels of the neck demonstrate normal course and caliber. Fascial planes are preserved and the deep spaces of the neck are normal. The visualized airway is widely patent. The base of the skull and the temporal bones are normal. Limited views of the brain including the cerebellum and brainstem are normal. The limited view of the [place] is unremarkable. The visualized portions of the orbits are normal. The spinal canal is normal in caliber. Intervertebral disk heights are normal. Neural foramina are normal. Chest CT: The lungs are clear without edema or pneumonia. No pleural effusion or pneumothorax. No suspicious nodules. Heart size is normal. No pericardial effusion. Aorta is normal in caliber. There is no axillary or supraclavicular lymphadenopathy. There is no mediastinal lymphadenopathy. Subclavian port catheter tip terminates in the superior vena cava. The right sided pleural soft tissue thickening has increased from prior exam. The maximal thickness is now 17 mm, previously 10 mm. This now extends over 8.3 cm in length, previously 5.0 cm. There is sclerosis of the overlying rib, similar to previous exam. Other areas of pleural thickening in the inferior right hemithorax also appear increased. The posterior mediastinal mass has increased in size measuring 1.8 x 4.7 cm, previously 11 x [address]: The liver is normal without focal lesion. There is no biliary ductal dilation. Gallbladder is normal. Pancreas is normal. Spleen is normal. Adrenal glands are normal. Bilateral renal cysts appear similar to prior exam. There is no hydronephrosis. Urinary bladder is normal. There are no dilated loops of large or small bowel. No obstruction or inflammation. No free fluid or air. No abdominal or pelvic lymphadenopathy. Aorta is normal in caliber without aneurysm. Right fourth rib sclerosis is unchanged. IMPRESSION: 1. Increasing soft tissue masses involving the right pleura and posterior mediastinum concerning for recurrent lymphoma. Dictated by: Dictated on workstation # [id number]
--- NOTE | 2019-06-12 15:52 | Diagnostic Imaging Report ---
INDICATION: History of follicular lymphoma. TECHNIQUE: The patient was administered 24.9 mCi technetium 99m MDP. Anterior and posterior whole-body planar images are obtained. CORRELATION STUDY: December 22, 2018. FINDINGS: Previous imaging demonstrated several areas of uptake about the left ribs. There are two more focal areas of uptake along the anterior aspect of the left fifth and sixth ribs, similar in distribution. Uptake posteriorly somewhat more heterogeneous at approximately the seventh, eighth, and ninth ribs is also present. Some uptake along the anterolateral aspect of the right fourth rib. Minimal uptake is suggested about the body of the sternum. Bilateral shoulder girdles are symmetric. Very slight asymmetric uptake about the high left calvarium. Degenerative-type uptake about the thoracic and lumbar spine. There is slight asymmetric uptake about the left iliac bone near the SI joint compared to the right. Likely some degenerative-type uptake about the bilateral knees and ankles. IMPRESSION: 1. Multifocal areas of radiotracer accumulation are again demonstrated. The overall severity and distribution appear to be generally stable. Dictated by: Dictated on workstation # [id number]
== END ==
LOC: CARD 10:57
PROVIDERS: ATTEND Nurse Practitioner Adult Health
DX: Z01.89 Encounter for other specified special examinations (principal); C83.39 Diffuse large B-cell lymphoma, extranodal and solid organ sites; J98.4 Other disorders of lung
CPT/HCPCS: 70491; 71260; 74178; 78306

== ENCOUNTER → 2019-07-28 | Outpatient (CLI) | payer MEDICARE ==
[~2019-07-28] MED LIST changes: -BARIUM SUSPENSION 2.1% (VANILLA SILQ) 450 ML PO ONE; -CATHETER FLUSH 10 ML SYR IV PRN; -HOLD METFORMIN - RECEIVED CONTRAST 20 ML VIAL IV SCH; -IOHEXOL 350 MG/ML 100 ML (OMNIPAQUE 350) VIAL IV ONE; -NS 100 ML (IVPB) BAG IV ONE
--- NOTE | 2019-07-28 13:38 | Diagnostic Imaging Report ---
INDICATION: Follicular lymphoma. Abnormal recent CT scan. TECHNIQUE: Serum blood glucose level at the time of injection is 126 mg/dL. The patient was administered 14.3 mCi F-18 FDG intravenously in the right antecubital location and PET imaging was performed from the top of skull to mid thighs. Noncontrast CT was also performed for attenuation correction and anatomic correlation. COMPARISON: Correlation is made with recent CT chest, abdomen, and pelvis study from 06/12/2019. In addition, comparison is made with prior PET/CT study from 03/30/2010. FINDINGS: There is symmetric activity throughout the brain. Soft tissues of the neck are unremarkable. Multiple hypermetabolic foci within the pleura on the right side is identified, correlating with areas of previously described nodular pleural thickening. Largest area involves the lateral right upper pleura demonstrating SUV maximum of approximately 14. There is pleural thickening and hypermetabolism involving upper right posterior pleura. There is some abnormal activity involving upper vertebral body on the left side as well. Slightly hypermetabolic lymph node in the right axilla is noted. Hypermetabolic retrocrural lymphadenopathy is seen with an SUV max approximately 9.2. There are hypermetabolic lymph nodes in the right arm, both above the elbow and at the level of the elbow. Areas of hypermetabolism immediately posterior to the descending thoracic aorta is noted which corresponds to an area of soft tissue thickening. No definite hypermetabolism within the abdomen or pelvis is seen with exception of some hypermetabolic osseous lesions within the pelvis, particularly a right iliac bone as well as left iliac bone. There are some mildly hypermetabolic activity involving the left proximal humerus. There is abnormal uptake in the region of the mid and distal left humerus as well. IMPRESSION: Interval development of numerous abnormal foci of hypermetabolism. This involves areas of nodular pleural thickening bilaterally but greatest on the right as well as areas of retrocrural lymphadenopathy as well as multiple osseous lesions within the bony pelvis, ribs and bilateral humeri. Findings are suspicious for lymphoma recurrence. Percutaneous tissue sampling of the area of pleural thickening on the right would be possible. Dictated by: Dictated on workstation # [id number]
== END ==
LOC: RAD 07:57
PROVIDERS: ATTEND Internal Medicine Hematology & Oncology
DX: C83.39 Diffuse large B-cell lymphoma, extranodal and solid organ sites (principal); R93.89 Abnormal findings on diagnostic imaging of other specified body structures

== ENCOUNTER 2019-09-08 08:04 | Outpatient (RCR) | payer MEDICARE ==
[2019-06-12 10:08] LABS: BASOPHILS % (AUTO) 0 % (0-10); EOSINOPHILS # (AUTO) 0.1 10^3/uL (0.0-0.3); EOSINOPHILS % (AUTO) 1 % (0-10); HEMATOCRIT 37 % (40-54); HEMOGLOBIN 12.1 G/DL (13.3-17.7); LYMPHOCYTES % (AUTO) 18 % (12-44); MEAN CORPUSCULAR HEMOGLOBIN 30 PG (25-34); MEAN CORPUSCULAR HGB CONC 33 G/DL (32-36); MEAN CORPUSCULAR VOLUME 92 FL (80-99); MEAN PLATELET VOLUME 9.2 FL (7.4-10.4); MONOCYTES # (AUTO) 0.9 X 10^3 (0.0-1.0); MONOCYTES % (AUTO) 16 % (0-12); NEUTROPHILS # (AUTO) 3.6 X 10^3 (1.8-7.8); NEUTROPHILS % (AUTO) 65 % (42-75); PLATELET COUNT 169 10^3/uL (130-400); RED CELL DISTRIBUTION WIDTH 15.4 % (10.0-14.5); WHITE BLOOD COUNT 5.5 10^3/uL (4.3-11.0)
[2019-06-12 10:36] LABS: BILIRUBIN,TOTAL 0.6 MG/DL (0.1-1.0); CREATININE SERUM 1.37 MG/DL (0.60-1.30); POTASSIUM 4.4 MMOL/L (3.6-5.0); TOTAL PROTEIN 6.2 GM/DL (6.4-8.2)
[2019-08-25 11:52] LABS: BASOPHILS % (AUTO) 0 % (0-10); EOSINOPHILS # (AUTO) 0.1 10^3/uL (0.0-0.3); EOSINOPHILS % (AUTO) 1 % (0-10); HEMATOCRIT 39 % (40-54); LYMPHOCYTES # (AUTO) 1.3 X 10^3 (1.0-4.0); LYMPHOCYTES % (AUTO) 20 % (12-44); MEAN CORPUSCULAR HEMOGLOBIN 31 PG (25-34); MEAN CORPUSCULAR HGB CONC 33 G/DL (32-36); MEAN CORPUSCULAR VOLUME 93 FL (80-99); MEAN PLATELET VOLUME 10.2 FL (7.4-10.4); MONOCYTES % (AUTO) 15 % (0-12); NEUTROPHILS # (AUTO) 4.3 X 10^3 (1.8-7.8); NEUTROPHILS % (AUTO) 64 % (42-75); PLATELET COUNT 161 10^3/uL (130-400); RED CELL DISTRIBUTION WIDTH 14.9 % (10.0-14.5); WHITE BLOOD COUNT 6.7 10^3/uL (4.3-11.0)
[2019-08-25 12:12] LABS: ALBUMIN 4.3 GM/DL (3.2-4.5); BILIRUBIN,TOTAL 0.7 MG/DL (0.1-1.0); CALCIUM 9.4 MG/DL (8.5-10.1); CREATININE SERUM 1.38 MG/DL (0.60-1.30); TOTAL PROTEIN 6.5 GM/DL (6.4-8.2)
[~2019-09-08] VITALS: Ht 180.3 cm; Wt 92.5 kg
[~2019-09-08 08:04] MED LIST changes: +ACETAMINOPHEN 325 MG TAB (TYLENOL) CANCER CTR PO PRN; +BENDAMUSTINE HCL 160 MG in NS (IVPB) CANCER CENTER 50 ML IV SCH; +NS IV 1000 ML (CANCER CTR) 1,000 ML ONE; +NS IV 1000 ML (CANCER CTR) IV SCH; +ONDANSETRON MDV (CANCER CENTER 16 MG, DEXAMETHASONE INJECTION 10 MG in NS (IVPB) CANCER... IV SCH; +PALONOSETRON HCL 0.25 MG, DEXAMETHASONE INJECTION 10 MG in NS (IVPB) CANCER CENTER 50 ML IV SCH; +diphenhydrAMINE 50 MG/ML INJ (CANCER CENTER) IV PRN; +riTUXimab 500 MG, riTUXimab FOR IV INJ CONC 300 MG in NS (IVPB) CANCER CENTER 186 ML IV SCH
[2019-09-08 08:16] LABS: BASOPHILS % (AUTO) 0 % (0-10); EOSINOPHILS # (AUTO) 0.1 10^3/uL (0.0-0.3); EOSINOPHILS % (AUTO) 1 % (0-10); HEMATOCRIT 38 % (40-54); HEMOGLOBIN 12.5 G/DL (13.3-17.7); LYMPHOCYTES # (AUTO) 0.5 X 10^3 (1.0-4.0); LYMPHOCYTES % (AUTO) 7 % (12-44); MEAN CORPUSCULAR HEMOGLOBIN 30 PG (25-34); MEAN CORPUSCULAR HGB CONC 33 G/DL (32-36); MEAN CORPUSCULAR VOLUME 93 FL (80-99); MEAN PLATELET VOLUME 9.8 FL (7.4-10.4); MONOCYTES % (AUTO) 15 % (0-12); NEUTROPHILS # (AUTO) 5.1 X 10^3 (1.8-7.8); NEUTROPHILS % (AUTO) 77 % (42-75); PLATELET COUNT 168 10^3/uL (130-400); RED CELL DISTRIBUTION WIDTH 14.9 % (10.0-14.5); WHITE BLOOD COUNT 6.6 10^3/uL (4.3-11.0)
[2019-09-08 08:34] LABS: CALCIUM 9.2 MG/DL (8.5-10.1); CREATININE SERUM 2.17 MG/DL (0.60-1.30)
== END 2019-09-10 | disposition home or self-care (01) ==
LOC: ONC 08:04
PROVIDERS: ATTEND Internal Medicine Hematology & Oncology
DX: Z51.11 Encounter for antineoplastic chemotherapy (principal); C85.86 Other specified types of non-Hodgkin lymphoma, intrapelvic lymph nodes; E11.22 Type 2 diabetes mellitus with diabetic chronic kidney disease; I12.9 Hypertensive chronic kidney disease with stage 1 through stage 4 chronic kidney disease, or unspecified chronic kidney disease; D63.1 Anemia in chronic kidney disease; N18.3 Chronic kidney disease, stage 3 (moderate); Z79.899 Other long term (current) drug therapy; Z79.4 Long term (current) use of insulin; Z45.2 Encounter for adjustment and management of vascular access device; Z92.3 Personal history of irradiation; Z98.890 Other specified postprocedural states
CPT/HCPCS: 36415; 80048; 80053; 83615; 85025; 96360; 96375; 96409; 96411; 96413; 96415; 96523; 99213; J9312

== ENCOUNTER 2019-12-03 11:24 | Outpatient (RCR) | payer MEDICARE ==
[2019-09-15 08:24] LABS: BASOPHILS % (AUTO) 0 % (0-10); EOSINOPHILS # (AUTO) 0.1 10^3/uL (0.0-0.3); EOSINOPHILS % (AUTO) 1 % (0-10); HEMATOCRIT 38 % (40-54); HEMOGLOBIN 12.7 G/DL (13.3-17.7); LYMPHOCYTES # (AUTO) 0.7 X 10^3 (1.0-4.0); LYMPHOCYTES % (AUTO) 10 % (12-44); MEAN CORPUSCULAR HEMOGLOBIN 31 PG (25-34); MEAN CORPUSCULAR HGB CONC 33 G/DL (32-36); MEAN CORPUSCULAR VOLUME 93 FL (80-99); MEAN PLATELET VOLUME 9.4 FL (7.4-10.4); MONOCYTES # (AUTO) 1.1 X 10^3 (0.0-1.0); MONOCYTES % (AUTO) 15 % (0-12); NEUTROPHILS # (AUTO) 5.4 X 10^3 (1.8-7.8); NEUTROPHILS % (AUTO) 74 % (42-75); PLATELET COUNT 164 10^3/uL (130-400); RED CELL DISTRIBUTION WIDTH 14.7 % (10.0-14.5); WHITE BLOOD COUNT 7.4 10^3/uL (4.3-11.0)
[2019-09-15 08:41] LABS: CALCIUM 9.3 MG/DL (8.5-10.1); CREATININE SERUM 1.45 MG/DL (0.60-1.30); POTASSIUM 4.3 MMOL/L (3.6-5.0)
[2019-09-22 08:16] LABS: BASOPHILS % (AUTO) 0 % (0-10); EOSINOPHILS # (AUTO) 0.1 10^3/uL (0.0-0.3); EOSINOPHILS % (AUTO) 2 % (0-10); HEMATOCRIT 38 % (40-54); HEMOGLOBIN 12.6 G/DL (13.3-17.7); LYMPHOCYTES % (AUTO) 18 % (12-44); MEAN CORPUSCULAR HEMOGLOBIN 31 PG (25-34); MEAN CORPUSCULAR HGB CONC 34 G/DL (32-36); MEAN CORPUSCULAR VOLUME 93 FL (80-99); MEAN PLATELET VOLUME 9.8 FL (7.4-10.4); MONOCYTES % (AUTO) 18 % (0-12); NEUTROPHILS # (AUTO) 3.4 X 10^3 (1.8-7.8); NEUTROPHILS % (AUTO) 63 % (42-75); PLATELET COUNT 148 10^3/uL (130-400); RED CELL DISTRIBUTION WIDTH 14.4 % (10.0-14.5); WHITE BLOOD COUNT 5.4 10^3/uL (4.3-11.0)
[2019-09-22 08:34] LABS: CALCIUM 9.2 MG/DL (8.5-10.1); CREATININE SERUM 1.73 MG/DL (0.60-1.30); POTASSIUM 4.5 MMOL/L (3.6-5.0)
[2019-09-29 09:10] LABS: BASOPHILS % (AUTO) 0 % (0-10); EOSINOPHILS # (AUTO) 0.1 10^3/uL (0.0-0.3); EOSINOPHILS % (AUTO) 2 % (0-10); HEMATOCRIT 35 % (40-54); HEMOGLOBIN 11.8 G/DL (13.3-17.7); LYMPHOCYTES # (AUTO) 0.9 X 10^3 (1.0-4.0); LYMPHOCYTES % (AUTO) 16 % (12-44); MEAN CORPUSCULAR HEMOGLOBIN 31 PG (25-34); MEAN CORPUSCULAR HGB CONC 33 G/DL (32-36); MEAN CORPUSCULAR VOLUME 93 FL (80-99); MEAN PLATELET VOLUME 9.8 FL (7.4-10.4); MONOCYTES # (AUTO) 1.2 X 10^3 (0.0-1.0); MONOCYTES % (AUTO) 20 % (0-12); NEUTROPHILS # (AUTO) 3.6 X 10^3 (1.8-7.8); NEUTROPHILS % (AUTO) 62 % (42-75); PLATELET COUNT 149 10^3/uL (130-400); RED CELL DISTRIBUTION WIDTH 14.9 % (10.0-14.5); WHITE BLOOD COUNT 5.8 10^3/uL (4.3-11.0)
[2019-09-29 09:28] LABS: ALBUMIN 4.2 GM/DL (3.2-4.5); BILIRUBIN,TOTAL 0.5 MG/DL (0.1-1.0); CREATININE SERUM 1.52 MG/DL (0.60-1.30); POTASSIUM 4.2 MMOL/L (3.6-5.0); TOTAL PROTEIN 6.3 GM/DL (6.4-8.2)
[2019-10-13 08:25] LABS: BASOPHILS % (AUTO) 0 % (0-10); EOSINOPHILS # (AUTO) 0.1 10^3/uL (0.0-0.3); EOSINOPHILS % (AUTO) 1 % (0-10); HEMATOCRIT 36 % (40-54); HEMOGLOBIN 11.8 G/DL (13.3-17.7); LYMPHOCYTES # (AUTO) 0.6 X 10^3 (1.0-4.0); LYMPHOCYTES % (AUTO) 9 % (12-44); MEAN CORPUSCULAR HEMOGLOBIN 31 PG (25-34); MEAN CORPUSCULAR HGB CONC 33 G/DL (32-36); MEAN CORPUSCULAR VOLUME 93 FL (80-99); MEAN PLATELET VOLUME 9.7 FL (7.4-10.4); MONOCYTES # (AUTO) 0.9 X 10^3 (0.0-1.0); MONOCYTES % (AUTO) 13 % (0-12); NEUTROPHILS # (AUTO) 5.1 X 10^3 (1.8-7.8); NEUTROPHILS % (AUTO) 76 % (42-75); PLATELET COUNT 155 10^3/uL (130-400); RED CELL DISTRIBUTION WIDTH 14.6 % (10.0-14.5); WHITE BLOOD COUNT 6.7 10^3/uL (4.3-11.0)
[2019-10-13 08:40] LABS: CREATININE SERUM 1.81 MG/DL (0.60-1.30); POTASSIUM 4.5 MMOL/L (3.6-5.0)
[2019-10-27 09:35] LABS: BASOPHILS % (AUTO) 0 % (0-10); EOSINOPHILS # (AUTO) 0.1 10^3/uL (0.0-0.3); EOSINOPHILS % (AUTO) 2 % (0-10); HEMATOCRIT 35 % (40-54); HEMOGLOBIN 11.7 G/DL (13.3-17.7); LYMPHOCYTES # (AUTO) 0.5 X 10^3 (1.0-4.0); LYMPHOCYTES % (AUTO) 15 % (12-44); MEAN CORPUSCULAR HEMOGLOBIN 31 PG (25-34); MEAN CORPUSCULAR HGB CONC 33 G/DL (32-36); MEAN CORPUSCULAR VOLUME 93 FL (80-99); MEAN PLATELET VOLUME 9.2 FL (7.4-10.4); MONOCYTES # (AUTO) 1.4 X 10^3 (0.0-1.0); MONOCYTES % (AUTO) 44 % (0-12); NEUTROPHILS # (AUTO) 1.2 X 10^3 (1.8-7.8); NEUTROPHILS % (AUTO) 38 % (42-75); PLATELET COUNT 147 10^3/uL (130-400); RED CELL DISTRIBUTION WIDTH 14.9 % (10.0-14.5); WHITE BLOOD COUNT 3.2 10^3/uL (4.3-11.0)
[2019-10-27 09:55] LABS: ALBUMIN 4.2 GM/DL (3.2-4.5); BILIRUBIN,TOTAL 0.8 MG/DL (0.1-1.0); CALCIUM 9.4 MG/DL (8.5-10.1); CREATININE SERUM 1.51 MG/DL (0.60-1.30); POTASSIUM 4.1 MMOL/L (3.6-5.0); TOTAL PROTEIN 6.5 GM/DL (6.4-8.2)
[2019-11-03 10:12] LABS: BASOPHILS % (AUTO) 1 % (0-10); EOSINOPHILS # (AUTO) 0.1 10^3/uL (0.0-0.3); EOSINOPHILS % (AUTO) 2 % (0-10); HEMATOCRIT 35 % (40-54); HEMOGLOBIN 11.6 G/DL (13.3-17.7); LYMPHOCYTES # (AUTO) 0.8 X 10^3 (1.0-4.0); LYMPHOCYTES % (AUTO) 32 % (12-44); MEAN CORPUSCULAR HEMOGLOBIN 31 PG (25-34); MEAN CORPUSCULAR HGB CONC 34 G/DL (32-36); MEAN CORPUSCULAR VOLUME 93 FL (80-99); MEAN PLATELET VOLUME 9.7 FL (7.4-10.4); MONOCYTES % (AUTO) 40 % (0-12); NEUTROPHILS # (AUTO) 0.6 X 10^3 (1.8-7.8); NEUTROPHILS % (AUTO) 25 % (42-75); PLATELET COUNT 149 10^3/uL (130-400); RED CELL DISTRIBUTION WIDTH 14.5 % (10.0-14.5); WHITE BLOOD COUNT 2.5 10^3/uL (4.3-11.0)
[2019-11-03 10:32] LABS: CALCIUM 8.8 MG/DL (8.5-10.1); CREATININE SERUM 1.48 MG/DL (0.60-1.30); POTASSIUM 4.1 MMOL/L (3.6-5.0)
[2019-11-17 08:25] LABS: BASOPHILS % (AUTO) 0 % (0-10); EOSINOPHILS # (AUTO) 0.1 10^3/uL (0.0-0.3); EOSINOPHILS % (AUTO) 1 % (0-10); HEMATOCRIT 34 % (40-54); LYMPHOCYTES # (AUTO) 0.5 X 10^3 (1.0-4.0); LYMPHOCYTES % (AUTO) 7 % (12-44); MEAN CORPUSCULAR HEMOGLOBIN 31 PG (25-34); MEAN CORPUSCULAR HGB CONC 33 G/DL (32-36); MEAN CORPUSCULAR VOLUME 94 FL (80-99); MEAN PLATELET VOLUME 10.3 FL (7.4-10.4); MONOCYTES # (AUTO) 0.7 X 10^3 (0.0-1.0); MONOCYTES % (AUTO) 9 % (0-12); NEUTROPHILS # (AUTO) 5.9 X 10^3 (1.8-7.8); NEUTROPHILS % (AUTO) 82 % (42-75); PLATELET COUNT 160 10^3/uL (130-400); RED CELL DISTRIBUTION WIDTH 15.3 % (10.0-14.5); WHITE BLOOD COUNT 7.2 10^3/uL (4.3-11.0)
[2019-11-17 08:35] LABS: CALCIUM 8.6 MG/DL (8.5-10.1); CREATININE SERUM 1.65 MG/DL (0.60-1.30); POTASSIUM 4.3 MMOL/L (3.6-5.0)
[2019-12-01 09:31] LABS: BASOPHILS % (AUTO) 1 % (0-10); EOSINOPHILS # (AUTO) 0.1 10^3/uL (0.0-0.3); EOSINOPHILS % (AUTO) 3 % (0-10); HEMATOCRIT 32 % (40-54); HEMOGLOBIN 10.5 G/DL (13.3-17.7); LYMPHOCYTES # (AUTO) 0.5 X 10^3 (1.0-4.0); LYMPHOCYTES % (AUTO) 16 % (12-44); MEAN CORPUSCULAR HEMOGLOBIN 31 PG (25-34); MEAN CORPUSCULAR HGB CONC 33 G/DL (32-36); MEAN CORPUSCULAR VOLUME 93 FL (80-99); MEAN PLATELET VOLUME 8.8 FL (7.4-10.4); MONOCYTES % (AUTO) 60 % (0-12); NEUTROPHILS # (AUTO) 0.7 X 10^3 (1.8-7.8); NEUTROPHILS % (AUTO) 21 % (42-75); PLATELET COUNT 178 10^3/uL (130-400); RED CELL DISTRIBUTION WIDTH 14.9 % (10.0-14.5); WHITE BLOOD COUNT 3.4 10^3/uL (4.3-11.0)
[2019-12-01 09:46] LABS: ALBUMIN 3.9 GM/DL (3.2-4.5); BILIRUBIN,TOTAL 0.6 MG/DL (0.1-1.0); CALCIUM 8.8 MG/DL (8.5-10.1); CREATININE SERUM 1.49 MG/DL (0.60-1.30); POTASSIUM 4.3 MMOL/L (3.6-5.0); TOTAL PROTEIN 6.5 GM/DL (6.4-8.2)
[~2019-12-03 11:24] MED LIST changes: +ALTEPLASE 2 MG (CATHFLO) CANCER CENTER IV ONE; +BENDAMUSTINE HCL 150 MG in NS (IVPB) CANCER CENTER 50 ML IV SCH; +NS (IVPB) CANCER CENTER 250 ML ONE; -NS IV 1000 ML (CANCER CTR) 1,000 ML ONE; +NS IV 500 ML (CANCER CENTER) 0 ML ONE; +PEGFILGRASTIM 6 MG/0.6ML NEULASTA SC SCH; +diphenhydrAMINE 25 MG TAB (BENADRYL) CANCER CENTER PO ONE
== END 2019-12-14 | disposition home or self-care (01) ==
LOC: ONC 11:24
PROVIDERS: ATTEND Internal Medicine Hematology & Oncology
DX: C83.39 Diffuse large B-cell lymphoma, extranodal and solid organ sites (principal); C85.86 Other specified types of non-Hodgkin lymphoma, intrapelvic lymph nodes; E11.22 Type 2 diabetes mellitus with diabetic chronic kidney disease; I12.9 Hypertensive chronic kidney disease with stage 1 through stage 4 chronic kidney disease, or unspecified chronic kidney disease; N18.3 Chronic kidney disease, stage 3 (moderate); D63.1 Anemia in chronic kidney disease; Z79.4 Long term (current) use of insulin; Z45.2 Encounter for adjustment and management of vascular access device; Z92.3 Personal history of irradiation; Z98.890 Other specified postprocedural states; Z79.899 Other long term (current) drug therapy
CPT/HCPCS: 36591; 80048; 80053; 83615; 85025; 96372; 96375; 96409; 96411; 96413; 96415; J9312

== ENCOUNTER → 2019-12-15 | Outpatient (CLI) | payer MEDICARE ==
[~2019-12-15] MED LIST changes: -ACETAMINOPHEN 325 MG TAB (TYLENOL) CANCER CTR PO PRN; -ALTEPLASE 2 MG (CATHFLO) CANCER CENTER IV ONE; -BENDAMUSTINE HCL 150 MG in NS (IVPB) CANCER CENTER 50 ML IV SCH; -BENDAMUSTINE HCL 160 MG in NS (IVPB) CANCER CENTER 50 ML IV SCH; -NS (IVPB) CANCER CENTER 250 ML ONE; -NS IV 1000 ML (CANCER CTR) IV SCH; -NS IV 500 ML (CANCER CENTER) 0 ML ONE; -ONDANSETRON MDV (CANCER CENTER 16 MG, DEXAMETHASONE INJECTION 10 MG in NS (IVPB) CANCER... IV SCH; -PALONOSETRON HCL 0.25 MG, DEXAMETHASONE INJECTION 10 MG in NS (IVPB) CANCER CENTER 50 ML IV SCH; -PEGFILGRASTIM 6 MG/0.6ML NEULASTA SC SCH; -diphenhydrAMINE 25 MG TAB (BENADRYL) CANCER CENTER PO ONE; -diphenhydrAMINE 50 MG/ML INJ (CANCER CENTER) IV PRN; -riTUXimab 500 MG, riTUXimab FOR IV INJ CONC 300 MG in NS (IVPB) CANCER CENTER 186 ML IV SCH
== END ==
LOC: LAB 08:05
PROVIDERS: ATTEND Internal Medicine
DX: E11.9 Type 2 diabetes mellitus without complications (principal); Z79.899 Other long term (current) drug therapy
CPT/HCPCS: 36415; 83036

== ENCOUNTER → 2020-02-23 | Outpatient (CLI) | payer MEDICARE ==
--- NOTE | 2020-02-23 12:54 | Diagnostic Imaging Report ---
INDICATION: Follicular lymphoma, subsequent restaging. TECHNIQUE: The serum blood glucose level at the time of injection was 177 mg/dL. The patient was administered 15.1 mCi of F-18 FDG intravenously in the right antecubital location and PET imaging was performed from the top of the skull to the mid thighs. Noncontrast CT was also performed for attenuation correction and anatomic correlation. COMPARISON: PET/CT study from 07/28/2019. FINDINGS: There is symmetric activity throughout the brain. Significant improvement in the PET/CT study is noted when compared with the study from July. There has been near complete resolution of numerous hypermetabolic foci. There is a persistent area of hypermetabolism in a retrocrural location, posterior to the descending thoracic aorta. This area demonstrates an SUV max of approximately 9. The hypermetabolic foci within the pleura have resolved. The osseous uptake noted previously has resolved. No new abnormalities are seen. IMPRESSION: Significant improvement in the PET/CT study since 07/20/2019. There has been near complete resolution of numerous foci of hypermetabolism. There is a residual area of uptake in the retrocrural region on the left, posterior to the descending thoracic aorta. No additional areas or new foci are detected. Dictated by: Dictated on workstation # [id number]
== END ==
LOC: RAD 08:15
PROVIDERS: ATTEND Internal Medicine Hematology & Oncology
DX: C82.90 Follicular lymphoma, unspecified, unspecified site (principal)
CPT/HCPCS: 78815; A9552

== ENCOUNTER 2020-02-25 09:02 | Outpatient (RCR) | payer MEDICARE ==
[2019-12-15 08:14] LABS: BASOPHILS % (AUTO) 0 % (0-10); EOSINOPHILS # (AUTO) 0.1 10^3/uL (0.0-0.3); EOSINOPHILS % (AUTO) 1 % (0-10); HEMATOCRIT 32 % (40-54); HEMOGLOBIN 10.5 G/DL (13.3-17.7); LYMPHOCYTES # (AUTO) 0.5 X 10^3 (1.0-4.0); LYMPHOCYTES % (AUTO) 7 % (12-44); MEAN CORPUSCULAR HEMOGLOBIN 32 PG (25-34); MEAN CORPUSCULAR HGB CONC 33 G/DL (32-36); MEAN CORPUSCULAR VOLUME 95 FL (80-99); MONOCYTES # (AUTO) 0.5 X 10^3 (0.0-1.0); MONOCYTES % (AUTO) 7 % (0-12); NEUTROPHILS # (AUTO) 6.4 X 10^3 (1.8-7.8); NEUTROPHILS % (AUTO) 85 % (42-75); PLATELET COUNT 166 10^3/uL (130-400); WHITE BLOOD COUNT 7.5 10^3/uL (4.3-11.0)
[2019-12-15 08:35] LABS: CALCIUM 9.1 MG/DL (8.5-10.1); CREATININE SERUM 1.88 MG/DL (0.60-1.30); POTASSIUM 4.5 MMOL/L (3.6-5.0)
[2019-12-29 09:11] LABS: BASOPHILS % (AUTO) 0 % (0-10); EOSINOPHILS # (AUTO) 0.1 10^3/uL (0.0-0.3); EOSINOPHILS % (AUTO) 2 % (0-10); HEMATOCRIT 31 % (40-54); HEMOGLOBIN 10.3 G/DL (13.3-17.7); LYMPHOCYTES # (AUTO) 0.9 X 10^3 (1.0-4.0); LYMPHOCYTES % (AUTO) 11 % (12-44); MEAN CORPUSCULAR HEMOGLOBIN 32 PG (25-34); MEAN CORPUSCULAR HGB CONC 34 G/DL (32-36); MEAN CORPUSCULAR VOLUME 96 FL (80-99); MEAN PLATELET VOLUME 9.5 FL (7.4-10.4); MONOCYTES % (AUTO) 13 % (0-12); NEUTROPHILS # (AUTO) 5.8 X 10^3 (1.8-7.8); NEUTROPHILS % (AUTO) 74 % (42-75); PLATELET COUNT 147 10^3/uL (130-400); WHITE BLOOD COUNT 7.8 10^3/uL (4.3-11.0)
[2019-12-29 09:33] LABS: BILIRUBIN,TOTAL 0.5 MG/DL (0.1-1.0); CALCIUM 8.9 MG/DL (8.5-10.1); CREATININE SERUM 1.55 MG/DL (0.60-1.30); POTASSIUM 4.3 MMOL/L (3.6-5.0); TOTAL PROTEIN 6.2 GM/DL (6.4-8.2)
[2020-01-12 14:05] LABS: BASOPHILS % (AUTO) 0 % (0-10); EOSINOPHILS # (AUTO) 0.1 10^3/uL (0.0-0.3); EOSINOPHILS % (AUTO) 1 % (0-10); HEMATOCRIT 28 % (40-54); HEMOGLOBIN 9.3 G/DL (13.3-17.7); LYMPHOCYTES # (AUTO) 0.4 X 10^3 (1.0-4.0); LYMPHOCYTES % (AUTO) 5 % (12-44); MEAN CORPUSCULAR HEMOGLOBIN 33 PG (25-34); MEAN CORPUSCULAR HGB CONC 34 G/DL (32-36); MEAN CORPUSCULAR VOLUME 97 FL (80-99); MEAN PLATELET VOLUME 9.3 FL (7.4-10.4); MONOCYTES # (AUTO) 0.6 X 10^3 (0.0-1.0); MONOCYTES % (AUTO) 9 % (0-12); NEUTROPHILS # (AUTO) 6.2 X 10^3 (1.8-7.8); NEUTROPHILS % (AUTO) 85 % (42-75); PLATELET COUNT 144 10^3/uL (130-400); WHITE BLOOD COUNT 7.4 10^3/uL (4.3-11.0)
[2020-01-12 14:24] LABS: CREATININE SERUM 1.62 MG/DL (0.60-1.30); POTASSIUM 4.2 MMOL/L (3.6-5.0)
[2020-01-26 09:59] LABS: BASOPHILS % (AUTO) 0 % (0-10); EOSINOPHILS # (AUTO) 0.1 10^3/uL (0.0-0.3); EOSINOPHILS % (AUTO) 1 % (0-10); HEMATOCRIT 32 % (40-54); HEMOGLOBIN 10.7 G/DL (13.3-17.7); LYMPHOCYTES # (AUTO) 0.8 X 10^3 (1.0-4.0); LYMPHOCYTES % (AUTO) 13 % (12-44); MEAN CORPUSCULAR HEMOGLOBIN 32 PG (25-34); MEAN CORPUSCULAR HGB CONC 33 G/DL (32-36); MEAN CORPUSCULAR VOLUME 96 FL (80-99); MEAN PLATELET VOLUME 9.5 FL (7.4-10.4); MONOCYTES # (AUTO) 0.7 X 10^3 (0.0-1.0); MONOCYTES % (AUTO) 12 % (0-12); NEUTROPHILS # (AUTO) 4.2 X 10^3 (1.8-7.8); NEUTROPHILS % (AUTO) 73 % (42-75); PLATELET COUNT 156 10^3/uL (130-400); WHITE BLOOD COUNT 5.7 10^3/uL (4.3-11.0)
[2020-01-26 10:19] LABS: ALBUMIN 4.1 GM/DL (3.2-4.5); BILIRUBIN,TOTAL 0.5 MG/DL (0.1-1.0); CALCIUM 8.9 MG/DL (8.5-10.1); CREATININE SERUM 1.88 MG/DL (0.60-1.30); POTASSIUM 4.4 MMOL/L (3.6-5.0); TOTAL PROTEIN 6.3 GM/DL (6.4-8.2)
[2020-02-09 09:13] LABS: BASOPHILS % (AUTO) 0 % (0-10); EOSINOPHILS # (AUTO) 0.1 10^3/uL (0.0-0.3); EOSINOPHILS % (AUTO) 1 % (0-10); HEMATOCRIT 32 % (40-54); HEMOGLOBIN 10.4 G/DL (13.3-17.7); LYMPHOCYTES # (AUTO) 0.5 X 10^3 (1.0-4.0); LYMPHOCYTES % (AUTO) 7 % (12-44); MEAN CORPUSCULAR HEMOGLOBIN 32 PG (25-34); MEAN CORPUSCULAR HGB CONC 33 G/DL (32-36); MEAN CORPUSCULAR VOLUME 98 FL (80-99); MEAN PLATELET VOLUME 10.5 FL (7.4-10.4); MONOCYTES # (AUTO) 0.5 X 10^3 (0.0-1.0); MONOCYTES % (AUTO) 7 % (0-12); NEUTROPHILS # (AUTO) 6.2 X 10^3 (1.8-7.8); NEUTROPHILS % (AUTO) 85 % (42-75); PLATELET COUNT 143 10^3/uL (130-400); WHITE BLOOD COUNT 7.3 10^3/uL (4.3-11.0)
[2020-02-09 09:33] LABS: POTASSIUM 4.3 MMOL/L (3.6-5.0)
[2020-02-09 09:34] LABS: CALCIUM 8.6 MG/DL (8.5-10.1)
[2020-02-09 09:39] LABS: CREATININE SERUM 1.9 MG/DL (0.60-1.30)
[~2020-02-25 09:02] MED LIST changes: +ACETAMINOPHEN 325 MG TAB (TYLENOL) CANCER CTR PO PRN; +BENDAMUSTINE HCL 150 MG in NS (IVPB) CANCER CENTER 50 ML IV SCH; +NS IV 1000 ML (CANCER CTR) IV SCH; +PEGFILGRASTIM 6 MG/0.6ML NEULASTA SC SCH; +RITUXIMAB-ABBS 500 MG, RITUXIMAB-ABBS 300 MG in NS (IVPB) CANCER CENTER 186 ML IV SCH; +diphenhydrAMINE 25 MG TAB (BENADRYL) CANCER CENTER PO ONE; +diphenhydrAMINE 50 MG/ML INJ (CANCER CENTER) IV PRN; +riTUXimab 500 MG, riTUXimab FOR IV INJ CONC 300 MG in NS (IVPB) CANCER CENTER 186 ML IV SCH
[2020-03-02] MEDS ORDERED: RITUXIMAB-ABBS 500 MG, RITUXIMAB-ABBS 300 MG in NS (IVPB) CANCER CENTER 186 ML IV SCH (13:30)
== END 2020-03-14 | disposition home or self-care (01) ==
LOC: ONC 09:02
PROVIDERS: ATTEND Internal Medicine Hematology & Oncology
DX: Z51.11 Encounter for antineoplastic chemotherapy (principal); C83.39 Diffuse large B-cell lymphoma, extranodal and solid organ sites; C85.86 Other specified types of non-Hodgkin lymphoma, intrapelvic lymph nodes; E11.22 Type 2 diabetes mellitus with diabetic chronic kidney disease; I12.9 Hypertensive chronic kidney disease with stage 1 through stage 4 chronic kidney disease, or unspecified chronic kidney disease; N18.3 Chronic kidney disease, stage 3 (moderate); D63.1 Anemia in chronic kidney disease; Z79.4 Long term (current) use of insulin; Z45.2 Encounter for adjustment and management of vascular access device; Z92.3 Personal history of irradiation; Z98.890 Other specified postprocedural states; Z79.899 Other long term (current) drug therapy
CPT/HCPCS: 36591; 80048; 80053; 83615; 85025; 96360; 96372; 96375; 96409; 96411; 96413; 99213; J9312

== ENCOUNTER 2020-06-13 08:43 | Outpatient (RCR) | payer MEDICARE ==
[2020-03-22 09:19] LABS: BASOPHILS % (AUTO) 0 % (0-10); EOSINOPHILS # (AUTO) 0.1 10^3/uL (0.0-0.3); EOSINOPHILS % (AUTO) 1 % (0-10); HEMATOCRIT 32 % (40-54); HEMOGLOBIN 10.3 G/DL (13.3-17.7); LYMPHOCYTES # (AUTO) 0.7 X 10^3 (1.0-4.0); LYMPHOCYTES % (AUTO) 12 % (12-44); MEAN CORPUSCULAR HEMOGLOBIN 31 PG (25-34); MEAN CORPUSCULAR HGB CONC 32 G/DL (32-36); MEAN CORPUSCULAR VOLUME 97 FL (80-99); MEAN PLATELET VOLUME 9.6 FL (7.4-10.4); MONOCYTES # (AUTO) 0.9 X 10^3 (0.0-1.0); MONOCYTES % (AUTO) 16 % (0-12); NEUTROPHILS % (AUTO) 71 % (42-75); PLATELET COUNT 137 10^3/uL (130-400); WHITE BLOOD COUNT 5.6 10^3/uL (4.3-11.0)
[2020-03-22 09:35] LABS: BILIRUBIN,TOTAL 0.6 MG/DL (0.1-1.0); CALCIUM 8.6 MG/DL (8.5-10.1); CREATININE SERUM 1.96 MG/DL (0.60-1.30); POTASSIUM 4.3 MMOL/L (3.6-5.0); TOTAL PROTEIN 6.1 GM/DL (6.4-8.2)
[2020-05-16 09:06] LABS: BASOPHILS % (AUTO) 1 % (0-10); EOSINOPHILS # (AUTO) 0.1 10^3/uL (0.0-0.3); EOSINOPHILS % (AUTO) 1 % (0-10); HEMATOCRIT 34 % (40-54); HEMOGLOBIN 10.9 g/dL (13.3-17.7); LYMPHOCYTES # (AUTO) 0.5 10^3/uL (1.0-4.0); LYMPHOCYTES % (AUTO) 9 % (12-44); MEAN CORPUSCULAR HEMOGLOBIN 32 pg (25-34); MEAN CORPUSCULAR HGB CONC 32 g/dL (32-36); MEAN CORPUSCULAR VOLUME 98 fL (80-99); MEAN PLATELET VOLUME 10.5 fL (9.0-12.2); MONOCYTES # (AUTO) 0.9 10^3/uL (0.0-1.0); MONOCYTES % (AUTO) 16 % (0-12); NEUTROPHILS % (AUTO) 72 % (42-75); PLATELET COUNT 154 10^3/uL (130-400); WHITE BLOOD COUNT 5.5 10^3/uL (4.3-11.0)
[2020-05-16 09:34] LABS: ALBUMIN 4.2 GM/DL (3.2-4.5); BILIRUBIN,TOTAL 0.6 MG/DL (0.1-1.0); CREATININE SERUM 1.85 MG/DL (0.60-1.30); POTASSIUM 4.4 MMOL/L (3.6-5.0); TOTAL PROTEIN 6.4 GM/DL (6.4-8.2)
[~2020-06-13 08:43] MED LIST changes: +ACETAMINOPHEN 500 MG TAB (TYLENOL) CANCER CTR ONE; -BENDAMUSTINE HCL 150 MG in NS (IVPB) CANCER CENTER 50 ML IV SCH; -PEGFILGRASTIM 6 MG/0.6ML NEULASTA SC SCH; +diphenhydrAMINE 25 MG TAB (BENADRYL) CANCER CENTER PO SCH; -diphenhydrAMINE 50 MG/ML INJ (CANCER CENTER) IV PRN; -riTUXimab 500 MG, riTUXimab FOR IV INJ CONC 300 MG in NS (IVPB) CANCER CENTER 186 ML IV SCH
== END 2020-06-20 | disposition home or self-care (01) ==
LOC: ONC 08:43
PROVIDERS: ATTEND Internal Medicine Hematology & Oncology
DX: C83.39 Diffuse large B-cell lymphoma, extranodal and solid organ sites (principal); C85.86 Other specified types of non-Hodgkin lymphoma, intrapelvic lymph nodes; E11.22 Type 2 diabetes mellitus with diabetic chronic kidney disease; I12.9 Hypertensive chronic kidney disease with stage 1 through stage 4 chronic kidney disease, or unspecified chronic kidney disease; D63.1 Anemia in chronic kidney disease; Z79.4 Long term (current) use of insulin; Z45.2 Encounter for adjustment and management of vascular access device; Z92.3 Personal history of irradiation; Z98.890 Other specified postprocedural states; Z79.899 Other long term (current) drug therapy; N18.31 Chronic kidney disease, stage 3a
CPT/HCPCS: 80053; 83615; 85025; 96413; G0463; 36591; 96523

== ENCOUNTER 2020-10-03 08:28 | Outpatient (RCR) | payer MEDICARE ==
[2020-07-11 09:53] LABS: BASOPHILS % (AUTO) 0 % (0-10); EOSINOPHILS # (AUTO) 0.1 10^3/uL (0.0-0.3); EOSINOPHILS % (AUTO) 1 % (0-10); HEMATOCRIT 32 % (40-54); HEMOGLOBIN 10.6 g/dL (13.3-17.7); LYMPHOCYTES # (AUTO) 0.4 10^3/uL (1.0-4.0); LYMPHOCYTES % (AUTO) 8 % (12-44); MEAN CORPUSCULAR HEMOGLOBIN 32 pg (25-34); MEAN CORPUSCULAR HGB CONC 33 g/dL (32-36); MEAN CORPUSCULAR VOLUME 98 fL (80-99); MEAN PLATELET VOLUME 10.4 fL (9.0-12.2); MONOCYTES # (AUTO) 0.9 10^3/uL (0.0-1.0); MONOCYTES % (AUTO) 17 % (0-12); NEUTROPHILS # (AUTO) 3.9 10^3/uL (1.8-7.8); NEUTROPHILS % (AUTO) 73 % (42-75); PLATELET COUNT 162 10^3/uL (130-400); WHITE BLOOD COUNT 5.4 10^3/uL (4.3-11.0)
[2020-07-11 10:10] LABS: POTASSIUM 4.4 MMOL/L (3.6-5.0)
[2020-07-11 10:11] LABS: ALBUMIN 4.1 GM/DL (3.2-4.5); BILIRUBIN,TOTAL 0.4 MG/DL (0.1-1.0); CALCIUM 8.6 MG/DL (8.5-10.1); CREATININE SERUM 1.61 MG/DL (0.60-1.30); TOTAL PROTEIN 6.2 GM/DL (6.4-8.2)
[2020-09-05 09:32] LABS: BASOPHILS % (AUTO) 1 % (0-10); EOSINOPHILS # (AUTO) 0.1 10^3/uL (0.0-0.3); EOSINOPHILS % (AUTO) 1 % (0-10); HEMATOCRIT 31 % (40-54); HEMOGLOBIN 10.3 g/dL (13.3-17.7); LYMPHOCYTES # (AUTO) 0.6 10^3/uL (1.0-4.0); LYMPHOCYTES % (AUTO) 11 % (12-44); MEAN CORPUSCULAR HEMOGLOBIN 32 pg (25-34); MEAN CORPUSCULAR HGB CONC 33 g/dL (32-36); MEAN CORPUSCULAR VOLUME 98 fL (80-99); MEAN PLATELET VOLUME 9.9 fL (9.0-12.2); MONOCYTES % (AUTO) 16 % (0-12); NEUTROPHILS # (AUTO) 4.2 10^3/uL (1.8-7.8); NEUTROPHILS % (AUTO) 71 % (42-75); PLATELET COUNT 148 10^3/uL (130-400); WHITE BLOOD COUNT 5.9 10^3/uL (4.3-11.0)
[2020-09-05 09:54] LABS: ALBUMIN 3.9 GM/DL (3.2-4.5); BILIRUBIN,TOTAL 0.4 MG/DL (0.1-1.0); CALCIUM 8.5 MG/DL (8.5-10.1); CREATININE SERUM 1.75 MG/DL (0.60-1.30); POTASSIUM 4.4 MMOL/L (3.6-5.0)
[~2020-10-03 08:28] MED LIST changes: -diphenhydrAMINE 25 MG TAB (BENADRYL) CANCER CENTER PO ONE
== END 2020-10-09 | disposition home or self-care (01) ==
LOC: ONC 08:28
PROVIDERS: ATTEND Internal Medicine Hematology & Oncology
DX: Z51.11 Encounter for antineoplastic chemotherapy (principal); C83.39 Diffuse large B-cell lymphoma, extranodal and solid organ sites; C85.86 Other specified types of non-Hodgkin lymphoma, intrapelvic lymph nodes; E11.22 Type 2 diabetes mellitus with diabetic chronic kidney disease; I12.9 Hypertensive chronic kidney disease with stage 1 through stage 4 chronic kidney disease, or unspecified chronic kidney disease; N18.30 Chronic kidney disease, stage 3 unspecified; D63.1 Anemia in chronic kidney disease; D63.0 Anemia in neoplastic disease; Z79.4 Long term (current) use of insulin; Z45.2 Encounter for adjustment and management of vascular access device; Z92.3 Personal history of irradiation; Z98.890 Other specified postprocedural states; Z79.899 Other long term (current) drug therapy
CPT/HCPCS: 80053; 83615; 85025; 96413; G0463; 36591; 96523

== ENCOUNTER 2020-12-26 08:50 | Outpatient (RCR) | payer MEDICARE ==
[2020-10-31 09:10] LABS: BASOPHILS % (AUTO) 0 % (0-10); EOSINOPHILS % (AUTO) 0 % (0-10); HEMATOCRIT 32 % (40-54); HEMOGLOBIN 10.5 g/dL (13.3-17.7); LYMPHOCYTES # (AUTO) 0.4 10^3/uL (1.0-4.0); LYMPHOCYTES % (AUTO) 7 % (12-44); MEAN CORPUSCULAR HEMOGLOBIN 32 pg (25-34); MEAN CORPUSCULAR HGB CONC 33 g/dL (32-36); MEAN CORPUSCULAR VOLUME 98 fL (80-99); MEAN PLATELET VOLUME 10.3 fL (9.0-12.2); MONOCYTES # (AUTO) 1.1 10^3/uL (0.0-1.0); MONOCYTES % (AUTO) 17 % (0-12); NEUTROPHILS # (AUTO) 5.2 10^3/uL (1.8-7.8); NEUTROPHILS % (AUTO) 76 % (42-75); PLATELET COUNT 144 10^3/uL (130-400); WHITE BLOOD COUNT 6.8 10^3/uL (4.3-11.0)
[2020-10-31 09:29] LABS: BILIRUBIN,TOTAL 0.5 MG/DL (0.1-1.0); CALCIUM 8.3 MG/DL (8.5-10.1); CREATININE SERUM 1.8 MG/DL (0.60-1.30); POTASSIUM 4.1 MMOL/L (3.6-5.0)
[2020-12-26 09:08] LABS: BASOPHILS % (AUTO) 0 % (0-10); EOSINOPHILS # (AUTO) 0.1 10^3/uL (0.0-0.3); EOSINOPHILS % (AUTO) 1 % (0-10); HEMATOCRIT 33 % (40-54); HEMOGLOBIN 10.9 g/dL (13.3-17.7); LYMPHOCYTES # (AUTO) 0.8 10^3/uL (1.0-4.0); LYMPHOCYTES % (AUTO) 10 % (12-44); MEAN CORPUSCULAR HEMOGLOBIN 32 pg (25-34); MEAN CORPUSCULAR HGB CONC 33 g/dL (32-36); MEAN CORPUSCULAR VOLUME 97 fL (80-99); MEAN PLATELET VOLUME 9.8 fL (9.0-12.2); MONOCYTES # (AUTO) 1.3 10^3/uL (0.0-1.0); MONOCYTES % (AUTO) 16 % (0-12); NEUTROPHILS # (AUTO) 5.8 10^3/uL (1.8-7.8); NEUTROPHILS % (AUTO) 73 % (42-75); PLATELET COUNT 153 10^3/uL (130-400)
[2020-12-26 09:32] LABS: ALBUMIN 4.1 GM/DL (3.2-4.5); BILIRUBIN,TOTAL 0.7 MG/DL (0.1-1.0); CREATININE SERUM 1.77 MG/DL (0.60-1.30); POTASSIUM 4.2 MMOL/L (3.6-5.0); TOTAL PROTEIN 6.1 GM/DL (6.4-8.2)
[2020-12-26] MEDS ORDERED: ACETAMINOPHEN 500 MG TAB (TYLENOL) CANCER CTR PO PRN (10:45)
== END 2021-01-29 | disposition home or self-care (01) ==
LOC: ONC 08:50
PROVIDERS: ATTEND Internal Medicine Hematology & Oncology
DX: Z51.11 Encounter for antineoplastic chemotherapy (principal); C83.39 Diffuse large B-cell lymphoma, extranodal and solid organ sites; C85.86 Other specified types of non-Hodgkin lymphoma, intrapelvic lymph nodes; E11.22 Type 2 diabetes mellitus with diabetic chronic kidney disease; I13.0 Hypertensive heart and chronic kidney disease with heart failure and stage 1 through stage 4 chronic kidney disease, or unspecified chronic kidney disease; I50.9 Heart failure, unspecified; N18.30 Chronic kidney disease, stage 3 unspecified; D63.1 Anemia in chronic kidney disease; D63.0 Anemia in neoplastic disease; Z79.4 Long term (current) use of insulin; Z45.2 Encounter for adjustment and management of vascular access device; Z92.3 Personal history of irradiation; Z98.890 Other specified postprocedural states; Z79.899 Other long term (current) drug therapy
CPT/HCPCS: 80053; 83615; 85025; 96413; G0463; 36591; 96523

== ENCOUNTER → 2021-01-23 | Outpatient (CLI) | payer MEDICARE ==
[~2021-01-23] VITALS: Ht 180.3 cm; Wt 95.5 kg
[~2021-01-23] MED LIST changes: -ACETAMINOPHEN 325 MG TAB (TYLENOL) CANCER CTR PO PRN; -ACETAMINOPHEN 500 MG TAB (TYLENOL) CANCER CTR ONE; +CASIRIVIMAB/IMDEVIMAB 1,200 MG in NS (IVPB) 250 ML IV ONE; +EPINEPHrine INJECTION 1 MG/ML AMP IM PRN; -NS IV 1000 ML (CANCER CTR) IV SCH; -RITUXIMAB-ABBS 500 MG, RITUXIMAB-ABBS 300 MG in NS (IVPB) CANCER CENTER 186 ML IV SCH; -diphenhydrAMINE 25 MG TAB (BENADRYL) CANCER CENTER PO SCH; +diphenhydrAMINE 50 MG/ML INJ (BENADRYL) IV PRN
[2021-01-23 11:42] VITALS: BP 160/70
[2021-01-23 13:46] VITALS: BP 139/71
== END ==
LOC: INFUSION 11:45
PROVIDERS: ATTEND Physician Assistant
DX: Z23 Encounter for immunization (principal); U07.1 COVID-19

== ENCOUNTER 2021-04-17 08:42 | Outpatient (RCR) | payer MEDICARE ==
[2021-02-20 09:27] LABS: BASOPHILS % (AUTO) 0 % (0-10); EOSINOPHILS # (AUTO) 0.1 10^3/uL (0.0-0.3); EOSINOPHILS % (AUTO) 1 % (0-10); HEMATOCRIT 33 % (40-54); HEMOGLOBIN 10.6 g/dL (13.3-17.7); LYMPHOCYTES # (AUTO) 0.7 10^3/uL (1.0-4.0); LYMPHOCYTES % (AUTO) 14 % (12-44); MEAN CORPUSCULAR HEMOGLOBIN 31 pg (25-34); MEAN CORPUSCULAR HGB CONC 32 g/dL (32-36); MEAN CORPUSCULAR VOLUME 97 fL (80-99); MEAN PLATELET VOLUME 10.2 fL (9.0-12.2); MONOCYTES # (AUTO) 0.9 10^3/uL (0.0-1.0); MONOCYTES % (AUTO) 19 % (0-12); NEUTROPHILS # (AUTO) 3.1 10^3/uL (1.8-7.8); NEUTROPHILS % (AUTO) 65 % (42-75); PLATELET COUNT 138 10^3/uL (130-400); WHITE BLOOD COUNT 4.8 10^3/uL (4.3-11.0)
[2021-02-20 09:45] LABS: ALBUMIN 3.9 GM/DL (3.2-4.5); BILIRUBIN,TOTAL 0.7 MG/DL (0.1-1.0); CALCIUM 9.3 MG/DL (8.5-10.1); CREATININE SERUM 1.82 MG/DL (0.60-1.30); POTASSIUM 4.5 MMOL/L (3.6-5.0); TOTAL PROTEIN 6.3 GM/DL (6.4-8.2)
[~2021-04-17 08:42] MED LIST changes: +ACETAMINOPHEN 500 MG TAB (TYLENOL) CANCER CTR PO PRN; +ALTEPLASE 2 MG (CATHFLO) CANCER CENTER IV ONE; -CASIRIVIMAB/IMDEVIMAB 1,200 MG in NS (IVPB) 250 ML IV ONE; -EPINEPHrine INJECTION 1 MG/ML AMP IM PRN; +NS IV 1000 ML (CANCER CTR) IV SCH; +RITUXIMAB-ABBS 500 MG, RITUXIMAB-ABBS 300 MG in NS (IVPB) CANCER CENTER 186 ML IV SCH; +diphenhydrAMINE 25 MG TAB (BENADRYL) CANCER CENTER PO SCH; -diphenhydrAMINE 50 MG/ML INJ (BENADRYL) IV PRN
[2021-04-17 09:03] LABS: BASOPHILS % (AUTO) 0 % (0-10); EOSINOPHILS # (AUTO) 0.1 10^3/uL (0.0-0.3); EOSINOPHILS % (AUTO) 1 % (0-10); HEMATOCRIT 31 % (40-54); HEMOGLOBIN 10.2 g/dL (13.3-17.7); LYMPHOCYTES # (AUTO) 0.6 10^3/uL (1.0-4.0); LYMPHOCYTES % (AUTO) 9 % (12-44); MEAN CORPUSCULAR HEMOGLOBIN 32 pg (25-34); MEAN CORPUSCULAR HGB CONC 33 g/dL (32-36); MEAN CORPUSCULAR VOLUME 96 fL (80-99); MONOCYTES # (AUTO) 1.2 10^3/uL (0.0-1.0); MONOCYTES % (AUTO) 17 % (0-12); NEUTROPHILS # (AUTO) 5.1 10^3/uL (1.8-7.8); NEUTROPHILS % (AUTO) 73 % (42-75); PLATELET COUNT 144 10^3/uL (130-400); WHITE BLOOD COUNT 7.1 10^3/uL (4.3-11.0)
[2021-04-17 09:30] LABS: ALBUMIN 3.9 GM/DL (3.2-4.5); BILIRUBIN,TOTAL 0.5 MG/DL (0.1-1.0); CALCIUM 9.3 MG/DL (8.5-10.1); CREATININE SERUM 1.82 MG/DL (0.60-1.30); TOTAL PROTEIN 6.4 GM/DL (6.4-8.2)
== END 2021-04-30 | disposition home or self-care (01) ==
LOC: ONC 08:42
PROVIDERS: ATTEND Internal Medicine Hematology & Oncology
DX: Z45.2 Encounter for adjustment and management of vascular access device (principal); C83.39 Diffuse large B-cell lymphoma, extranodal and solid organ sites; C85.86 Other specified types of non-Hodgkin lymphoma, intrapelvic lymph nodes; E11.22 Type 2 diabetes mellitus with diabetic chronic kidney disease; I13.0 Hypertensive heart and chronic kidney disease with heart failure and stage 1 through stage 4 chronic kidney disease, or unspecified chronic kidney disease; I50.9 Heart failure, unspecified; N18.30 Chronic kidney disease, stage 3 unspecified; D63.1 Anemia in chronic kidney disease; D63.0 Anemia in neoplastic disease; Z79.4 Long term (current) use of insulin; Z92.3 Personal history of irradiation; Z98.890 Other specified postprocedural states; Z79.899 Other long term (current) drug therapy; Z92.21 Personal history of antineoplastic chemotherapy
CPT/HCPCS: 36591; 36593; 80053; 83615; 85025; 96413; 96523

== ENCOUNTER 2021-06-12 09:10 | Outpatient (RCR) | payer MEDICARE ==
[~2021-06-12 09:10] MED LIST changes: -ALTEPLASE 2 MG (CATHFLO) CANCER CENTER IV ONE
[2021-06-12 09:53] LABS: BASOPHILS % (AUTO) 0 % (0-10); EOSINOPHILS # (AUTO) 0.1 10^3/uL (0.0-0.3); EOSINOPHILS % (AUTO) 1 % (0-10); HEMATOCRIT 34 % (40-54); LYMPHOCYTES # (AUTO) 0.9 10^3/uL (1.0-4.0); LYMPHOCYTES % (AUTO) 11 % (12-44); MEAN CORPUSCULAR HEMOGLOBIN 31 pg (25-34); MEAN CORPUSCULAR HGB CONC 32 g/dL (32-36); MEAN CORPUSCULAR VOLUME 94 fL (80-99); MEAN PLATELET VOLUME 11.2 fL (9.0-12.2); MONOCYTES % (AUTO) 13 % (0-12); NEUTROPHILS # (AUTO) 5.9 10^3/uL (1.8-7.8); NEUTROPHILS % (AUTO) 75 % (42-75); PLATELET COUNT 155 10^3/uL (130-400); WHITE BLOOD COUNT 7.9 10^3/uL (4.3-11.0)
[2021-06-12 10:16] LABS: ALBUMIN 3.8 GM/DL (3.2-4.5); BILIRUBIN,TOTAL 0.6 MG/DL (0.1-1.0); CALCIUM 8.5 MG/DL (8.5-10.1); CREATININE SERUM 1.63 MG/DL (0.60-1.30); POTASSIUM 4.1 MMOL/L (3.6-5.0)
== END 2021-06-30 | disposition home or self-care (01) ==
LOC: ONC 09:10
PROVIDERS: ATTEND Internal Medicine Hematology & Oncology
DX: Z45.2 Encounter for adjustment and management of vascular access device (principal); C83.39 Diffuse large B-cell lymphoma, extranodal and solid organ sites; C85.86 Other specified types of non-Hodgkin lymphoma, intrapelvic lymph nodes; E11.22 Type 2 diabetes mellitus with diabetic chronic kidney disease; I13.0 Hypertensive heart and chronic kidney disease with heart failure and stage 1 through stage 4 chronic kidney disease, or unspecified chronic kidney disease; I50.9 Heart failure, unspecified; N18.30 Chronic kidney disease, stage 3 unspecified; D63.1 Anemia in chronic kidney disease; D63.0 Anemia in neoplastic disease; Z79.4 Long term (current) use of insulin; Z92.3 Personal history of irradiation; Z98.890 Other specified postprocedural states; Z79.899 Other long term (current) drug therapy; Z92.21 Personal history of antineoplastic chemotherapy
CPT/HCPCS: 36591; 80053; 83615; 85025; 96413; 96523; 99213

== ENCOUNTER 2021-07-10 08:52 | Outpatient (RCR) | payer MEDICARE ==
[~2021-07-10 08:52] MED LIST changes: -ACETAMINOPHEN 500 MG TAB (TYLENOL) CANCER CTR PO PRN; -NS IV 1000 ML (CANCER CTR) IV SCH; -RITUXIMAB-ABBS 500 MG, RITUXIMAB-ABBS 300 MG in NS (IVPB) CANCER CENTER 186 ML IV SCH; -diphenhydrAMINE 25 MG TAB (BENADRYL) CANCER CENTER PO SCH
== END 2021-07-31 | disposition home or self-care (01) ==
LOC: ONC 08:52
PROVIDERS: ATTEND Internal Medicine Hematology & Oncology
DX: Z45.2 Encounter for adjustment and management of vascular access device (principal); C83.39 Diffuse large B-cell lymphoma, extranodal and solid organ sites; C85.86 Other specified types of non-Hodgkin lymphoma, intrapelvic lymph nodes; E11.22 Type 2 diabetes mellitus with diabetic chronic kidney disease; I13.0 Hypertensive heart and chronic kidney disease with heart failure and stage 1 through stage 4 chronic kidney disease, or unspecified chronic kidney disease; N18.30 Chronic kidney disease, stage 3 unspecified; Z79.4 Long term (current) use of insulin; Z92.3 Personal history of irradiation; Z98.890 Other specified postprocedural states; Z79.899 Other long term (current) drug therapy; Z92.21 Personal history of antineoplastic chemotherapy
CPT/HCPCS: 96523

== ENCOUNTER 2021-10-16 07:33 | Outpatient (CLI) | payer MEDICARE ==
[~2021-10-16] VITALS: Ht 180.3 cm; Wt 92.7 kg
[2021-10-16] MEDS ORDERED: INSU100I10 SQ (11:02)
[2021-10-16] MEDS ORDERED: ATOR40TA70 PO (11:02)
[2021-10-16] MEDS ORDERED: AMLO-251 PO (11:02)
[2021-10-16] MEDS ORDERED: ALLO300T2 PO (11:02)
[2021-10-16] MEDS ORDERED: DOXA8TAB73 PO (11:02)
[2021-10-16] MEDS ORDERED: SITA50TA PO (11:02)
== END 2021-10-16 11:02 | disposition home or self-care (01) ==
LOC: PREOP 07:33
PROVIDERS: ATTEND Surgery
DX: Z01.818 Encounter for other preprocedural examination (principal)

== ENCOUNTER 2021-10-20 11:58 | Day surgery (SDC) | payer MEDICARE ==
[~2021-10-20] VITALS: Ht 180 cm; Wt 92.7 kg
[~2021-10-20 11:58] MED LIST changes: +ALLO300T2 PO; +AMLO-251 PO; +DOXA8TAB73 PO; +SITA50TA PO
[2021-10-20] MEDS ORDERED: LACTATED RINGERS 1,000 ML IV STA (12:06)
[2021-10-20 12:10] VITALS: BP 157/86
[2021-10-20] MEDS ORDERED: LIDOCAINE JELLY 2% 6 ML SYRINGE MM PRN (12:15)
[2021-10-20] MEDS ORDERED: MIDAZOLAM 2 MG/2 ML (VERSED) VIAL ONE (12:44)
[2021-10-20] MEDS ORDERED: PROPOFOL INJECTION 50 ML IV ONE (12:45)
--- NOTE | 2021-10-20 12:52 | Progress Note-Pre Operative ---
Pre-Operative Progress Note H&P Reviewed The H&P was reviewed, patient examined and no changes noted. Date Seen by Provider: Oct 20, 2021 Time Seen by Provider: 12:00 Date H&P Reviewed: Oct 20, 2021 Time H&P Reviewed: 12:00 Pre-Operative Diagnosis: screening, hx polyp JOSELYN SYKES MD Oct 20, 2021 12:52
--- NOTE | 2021-10-20 12:53 | Discharge Inst-Surgical ---
D/C Lap Instructions-MONY Follow Up Appt in 2 weeks Activity as tolerated High Fiber Diet 25g or more per day Avoid Alcohol, Caffeine, Spicy [place] and Acid foods. Drink 64 fluid oz or more of fluids per day. Symptoms to Report: Fever over 101 degree F, Nausea/Vomiting If any problems/questions: Contact your physician or go to Emergency Room JOSELYN SYKES MD Oct 20, 2021 12:53
[2021-10-20] MEDS ORDERED: ONDANSETRON 4 MG/2 ML (SDV) Z0FRAN IVP PRN (13:00)
[2021-10-20] MEDS ORDERED: ONDANSETRON 4 MG (ZOFRAN) ORAL DISSOLVE TAB PO PRN (13:00)
[2021-10-20 13:20] VITALS: BP 108/58
[2021-10-20 13:25] VITALS: BP 114/67
[2021-10-20 13:30] VITALS: BP 118/65
--- NOTE | 2021-10-20 13:32 | Progress Note-Post Operative ---
Post-Operative Progess Note Surgeon (s)/Focused Factory Manager (s) Surgeon JOSELYN SYKES MD Focused Factory Manager: none Pre-Operative Diagnosis screening, hx polyp Post-Operative Diagnosis mild chronic stage 2 ext and int hemorrhoids, mild sigmoid diveticulosis. Procedure & Operative Findings Date of Procedure 10/20/21 Procedure Performed/Findings colonoscopy Anesthesia Type mac Estimated Blood Loss Estimated blood loss (mL): minimal Specimens/Packing Specimens Removed none JOSELYN SYKES MD Oct 20, 2021 13:32
[2021-10-20 14:00] VITALS: BP 118/65
[2021-10-20 14:01] VITALS: BP 108/96
--- NOTE | 2021-10-20 14:03 | Anesthesia-General Post-Op ---
MAC Patient Condition Mental Status/LOC: Same as Preop Cardiovascular: Satisfactory Nausea/Vomiting: Absent Respiratory: Satisfactory Pain: Controlled Complications: Absent Post Op Complications Complications None Follow Up Care/Instructions Patient Instructions None needed. Anesthesiology Discharge Order Discharge Order Patient is doing well, no complaints, stable vital signs, no apparent adverse anesthesia problems. No complications reported per nursing. LIBERTY TROTTER CRNA Oct 20, 2021 14:03
--- NOTE | 2021-10-20 18:33 | OPERATIVE REPORT ---
DATE OF SERVICE: 10/20/2021 ATTENDING PRIMARY ROCKET ENGINE MECHANIC: Timoteo Rush APRN. PREOPERATIVE DIAGNOSIS: Screening colonoscopy with history of colon polyp. POSTOPERATIVE DIAGNOSES: Mild chronic stage II external and internal hemorrhoids, mild to moderate sigmoid diverticulosis. PROCEDURE: Colonoscopy. SURGEON: Joselyn Sykes MD. ANESTHESIA: Monitored anesthesia care. ESTIMATED BLOOD LOSS: Minimal. FINDINGS: Same as postoperative diagnoses. DISPOSITION: The patient tolerated the procedure well. INDICATIONS: The patient is a 76-year-old male referred over to us for screening colonoscopy. He reports his last colonoscopy was approximately in 2016 and a polyp was identified. He states for the most part he is doing well, does not report any major issues with diarrhea nor constipation as well as no red blood per rectum nor any dark tarry stools. He also does not report any family history of colon cancer. DESCRIPTION OF PROCEDURE: The patient was brought to the endoscopy suite, laid in left lateral decubitus position. After adequate IV pain and sedative medications and monitored anesthesia care, a digital rectal examination was performed. Mild stage II external and internal hemorrhoids identified, not actively edematous nor inflamed and no bleeding. Normal sphincter tone was felt and there were no palpable masses. Prostate gland was palpable and appeared normal. The endoscope was then intubated into the anus and rectum gently insufflated. The endoscope was then advanced to the valves of [place] of the rectum with no polyps or any neoplasms identified. In the sigmoid colon, mild to moderate sigmoid diverticulosis identified. The endoscope was then advanced through the remainder of the descending, transverse and ascending colon to the cecum, which were normal. There were no polyps or any neoplasms identified throughout the colon or rectum. The endoscope was then slowly withdrawn while taking a second look and suctioning of residual air with no additional findings. The patient tolerated the procedure well. We will recommend the necessary lifestyle and dietary accommodation including a high fiber diet with an addition of a fiber supplement, which should equal or exceed 30 grams daily to promote soft stools on a daily basis. No polyps were identified and if he does not have any family history of colon cancer and if he is asymptomatic, he does not need another colonoscopy for another 10 years. Job ID: [id number] DocumentID: [id number] Dictated Date: 10/20/2021 13:27:08 Recreation Officer Date: 10/20/2021 18:33:05 Dictated By: JOSELYN SYKES MD
== END 2021-10-20 14:03 | disposition home or self-care (01) ==
LOC: ENDO 11:58
PROVIDERS: ATTEND Surgery
DX: Z12.11 Encounter for screening for malignant neoplasm of colon (principal); K57.30 Diverticulosis of large intestine without perforation or abscess without bleeding; K64.1 Second degree hemorrhoids; K64.4 Residual hemorrhoidal skin tags; Z86.010 Personal history of colon polyps; Z87.891 Personal history of nicotine dependence

== ENCOUNTER 2022-08-25 06:17 | Emergency (ER) | payer MEDICARE ==
[~2022-08-25] VITALS: Ht 180 cm; Wt 92.7 kg
--- NOTE | 2022-08-25 06:39 | ED General ---
General Chief Complaint: Abdominal/GI Problems Stated Complaint: BLOOD FROM UNKNOWN SOURCE Nursing Triage Note: BROUGHT IN BY [facility] FROM [facility] FOR GI BLEED. PT PASSED LARGE AMOUNT BRIGHT RED BLOOD FROM RECTUM THIS AM. PT WITH HX LEUKEMIA, HD M,W,F DC'D FROM [facility] THIS WEEK. Source of Information: Patient Exam Limitations: No Limitations History of Present Illness Date Seen by Provider: Aug 25, 2022 Time Seen by Provider: 06:25 Initial Comments Here by EMS [facility] with report of blood from his bottom this morning. Patient has history of non-Hodgkin's lymphoma and is currently under therapy at using CAR-T cell therapy. He was just discharged from [facility] on , 2 days ago, per the . She reports that he had GI bleed during the hospitalization and has recently had to start dialysis over the last month or 2. He last had dialysis yesterday. Patient reports weakness but otherwise no significant complaints. arrives and does report the information as above. She states all of his doctors are at [facility]. She did report that his platelets were down to 32 and that they were trying to just monitor him due to risk of bleeding from procedures. Follows with Dr. Chamberlain for oncology locally. EMS reports blood pressure 80s systolic in route and that there was a large amount of blood at the rectum noted on their evaluation. Timing/Duration: 1-3 Hours Severity: Moderate, Severe Associated Systoms: No Fever/Chills, No Nausea/Vomiting, No Shortness of Air; Weakness Allergies and Home Medications Allergies Coded Allergies: levofloxacin (Verified Allergy, Mild, VOMITING, 03/10/14) Patient Home Medication List Home Medication List Reviewed: Yes Allopurinol (Allopurinol) 300 Mg Tablet, 300 MG PO HS, (Reported) Entered as Reported by: JOSEPHINE STERN on 10/16/211101 Amlodipine Besylate (Amlodipine Besylate) 10 Mg Tablet, 10 MG PO HS, (Reported) Entered as Reported by: JOSEPHINE STERN on 10/16/211101 Atorvastatin Calcium (Atorvastatin Calcium) 40 Mg Tablet, 40 MG PO HS, (Reported) Entered as Reported by: JOSEPHINE STERN on 10/16/211101 Doxazosin Mesylate (Doxazosin Mesylate) 8 Mg Tablet, 8 MG PO HS, (Reported) Entered as Reported by: JOSEPHINE STERN on 10/16/21 110 Insulin Glargine,Hum.rec.anlog (Lantus Solostar) 100 Unit/1 Ml Insuln.pen, 35 UNIT SQ HS, (Reported) Entered as Reported by: JOSEPHINE STERN on 10/16/21 110 Sitagliptin Phosphate (Januvia) 50 Mg Tablet, 50 MG PO HS, (Reported) Entered as Reported by: JOSEPHINE STERN on 10/16/21 110 Review of Systems Review of Systems Constitutional: see HPI; No chills, No fever Respiratory: No cough, No short of breath Cardiovascular: No chest pain; edema Gastrointestinal: No nausea, No vomiting; other (Rectal bleeding) Genitourinary: other (Mojica catheter in place) Skin: no symptoms reported Psychiatric/Neurological: Weakness Past Kvhefxx-Mbuljp-Wqnmou Hx Patient Social History Tobacco Use?: No Substance use?: No Alcohol Use?: No Pt feels they are or have been: No Immunizations Up To Date First/Initial COVID19 Vaccinat: yes Second COVID19 Vaccination Saravanan: yes Third COVID19 Vaccination Date: NO Seasonal Allergies Seasonal Allergies: No Past Medical History Surgery/Hospitalization HX: LEUKEMIA, ST 3 RENAL DISEASE, IDDM, HTN, GOUT, HD M,W,F Surgeries: Yes (BACK SURGERY, INGHERNIA REPAIR) Appendectomy Respiratory: No Cardiac: Yes Hypertension Neurological: No Reproductive Disorders: No Sexually Transmitted Disease: No Genitourinary: Yes Renal Failure Gastrointestinal: Yes Polyps Musculoskeletal: Yes Gout Endocrine: Yes Diabetes, Insulin dep Cancer: Yes (NON-HODGKINS) Lymphoma Psychosocial: No Integumentary: No Blood Disorders: No Adverse Reaction/Blood Tranf: No Family Medical History Reviewed Nursing Family Hx Neoplasm Physical Exam Vital Signs Vital Signs - First Documented 08/25/22 06:18 Temp 36.0 Pulse 90 Resp 18 B/P (MAP) 73/48 (56) Pulse Ox 93 O2 Delivery Room Air Capillary Refill : Less Than 3 Seconds Height, Weight, BMI Height: 5'11.00" Weight: 210lbs. oz. [id number]; 28.00 BMI Method:Stated General Appearance: No Apparent Distress, Chronically ill HEENT: PERRL/EOMI, Pharynx Normal, Pale Conjunctivae (L), Pale Conjunctivae (R) Neck: Non Tender, Supple Respiratory: Lungs Clear, Normal Breath Sounds Cardiovascular: Regular Rate, Rhythm, No Murmur Gastrointestinal: Non Tender, Soft Rectal: Other (Blood and clots noted at rectum. Incontinent of bloody stool) Extremity: Normal Range of Motion, Non Tender, Pedal Edema (1-2+ bilateral lower extremities) Neurologic/Psychiatric: Alert, Depressed Affect, Other (Oriented to and self and somewhat to situation but appears quite weak.) Skin: Warm/Dry, Pallor Focused Exam Lactate Level 08/25/22 06:46: Lactic Acid Level 1.34 Lactic Acid Level Laboratory Tests Test 08/25/22 06:46 Lactic Acid Level 1.34 MMOL/L (0.50-2.00) Progress/Results/Core Measures Suspected Sepsis SIRS Temperature: Pulse: 90 Respiratory Rate: 18 Laboratory Tests 08/25/22 06:25: White Blood Count 7.6 Blood Pressure 73 /48 Mean: 56 08/25/22 06:46: Lactic Acid Level 1.34 Laboratory Tests 08/25/22 06:25: Creatinine 2.46H, Platelet Count 33*L, Total Bilirubin 0.6 Results/Orders Lab Results Laboratory Tests Test 08/25/22 06:25 08/25/22 06:46 08/25/22 06:50 08/25/22 12:45 Range/Units White Blood Count 7.6 4.3-11.0 10^3/uL Red Blood Count 2.02 L 4.30-5.52 10^6/uL Hemoglobin 6.1 *L 13.3-17.7 g/dL Hematocrit 19 *L 40-54 % Mean Corpuscular Volume 94 80-99 fL Mean Corpuscular Hemoglobin 30 25-34 pg Mean Corpuscular Hemoglobin Concent 32 32-36 g/dL Red Cell Distribution Width 19.4 H 10.0-14.5 % Platelet Count 33 *L 130-400 10^3/uL Mean Platelet Volume 11.9 9.0-12.2 fL Immature Granulocyte % (Auto) 1 % Neutrophils (%) (Auto) 66 42-75 % Lymphocytes (%) (Auto) 11 L 12-44 % Monocytes (%) (Auto) 21 H 0-12 % Eosinophils (%) (Auto) 0 0-10 % Basophils (%) (Auto) 0 0-10 % Neutrophils # (Auto) 5.0 1.8-7.8 10^3/uL Lymphocytes # (Auto) 0.8 L 1.0-4.0 10^3/uL Monocytes # (Auto) 1.6 H 0.0-1.0 10^3/uL Eosinophils # (Auto) 0.0 0.0-0.3 10^3/uL Basophils # (Auto) 0.0 0.0-0.1 10^3/uL Immature Granulocyte # (Auto) 0.1 0.0-0.1 10^3/uL Neutrophils % (Manual) 71 % Lymphocytes % (Manual) 11 % Monocytes % (Manual) 14 % Band Neutrophils 4 % Nucleated Red Blood Cells 3 Platelet Estimate Percent Immature Platelet Fraction 6.8 0.0-7.6 % Polychromasia SLIGHT Hypochromasia SLIGHT Basophilic Stippling SLIGHT Anisocytosis MODERATE Microcytosis MODERATE Macrocytosis SLIGHT Sodium Level 137 135-145 MMOL/L Potassium Level 4.0 3.6-5.0 MMOL/L Chloride Level 100 98-107 MMOL/L Carbon Dioxide Level 25 21-32 MMOL/L Anion Gap 12 5-14 MMOL/L Blood Urea Nitrogen 53 H 7-18 MG/DL Creatinine 2.46 H 0.60-1.30 MG/DL Estimat Glomerular Filtration Rate 26 BUN/Creatinine Ratio 22 Glucose Level 124 H 70-105 MG/DL Calcium Level 7.6 L 8.5-10.1 MG/DL Corrected Calcium 9.0 8.5-10.1 MG/DL Magnesium Level 1.6 1.6-2.4 MG/DL Total Bilirubin 0.6 0.1-1.0 MG/DL Aspartate Amino Transf (AST/SGOT) 32 5-34 U/L Alanine Aminotransferase (ALT/SGPT) 92 H 0-55 U/L Alkaline Phosphatase 111 40-136 U/L C-Reactive Protein High Sensitivity 8.11 H 0.00-0.50 MG/DL Total Protein 3.8 L 6.4-8.2 GM/DL Albumin 2.2 L 3.2-4.5 GM/DL Lactic Acid Level 1.34 0.50-2.00 MMOL/L Urine Color YELLOW Urine Clarity CLEAR Urine pH 6.0 5-9 Urine Specific [place] 1.020 1.016-1.022 Urine Protein TRACE H NEGATIVE Urine Glucose (UA) NEGATIVE NEGATIVE Urine Ketones NEGATIVE NEGATIVE Urine Nitrite POSITIVE H NEGATIVE Urine Bilirubin NEGATIVE NEGATIVE Urine Urobilinogen 0.2 < = 1.0 MG/DL Urine Leukocyte Esterase NEGATIVE NEGATIVE Urine RBC (Auto) TRACE-I H NEGATIVE Urine RBC RARE /HPF Urine WBC NONE /HPF Urine Crystals PRESENT H /LPF Urine Uric Acid Crystals RARE H /LPF Urine Bacteria TRACE /HPF Urine Casts NONE /LPF Urine Mucus NEGATIVE /LPF Urine Culture Indicated YES Glucometer 144 H 70-110 MG/DL My Orders Orders - XIOMY PALM MD Cbc With Automated Diff (08/25/22 06:34) Comprehensive Metabolic Panel (08/25/22 06:34) Hs C Reactive Protein (08/25/22 06:34) Lactic Acid Analyzer (08/25/22 06:34) Ua Culture If Indicated (08/25/22 06:34) Blood Culture (08/25/22 06:34) Ed Iv/Invasive Line Start (08/25/22 06:34) Ns Iv 500 Ml (Sodium Chloride 0.9%) (08/25/22 06:45) Magnesium (08/25/22 06:34) Red Cells Leukocytes Reduced (08/25/22 06:36) Type And Screen (08/25/22 06:36) Manual Differential (08/25/22 06:25) Urine Culture (08/25/22 06:50) Ns Iv 500 Ml (Sodium Chloride 0.9%) (08/25/22 07:33) Chest 1 View, Ap/Pa Only (08/25/22 08:37) Ceftriaxone 1 Gm Pre-Mix (Rocephin 1 Gm (08/25/22 08:37) Hydrocortisone Injection (Solu-Cortef In (08/25/22 09:15) Ed Iv/Invasive Line Start (08/25/22 09:11) Ns Iv 500 Ml (Sodium Chloride 0.9%) (08/25/22 09:15) Medications Given in ED Vital Signs/I&O 08/25/22 08/25/22 08/25/22 08/25/22 06:18 07:47 08:02 10:30 Temp 36.0 36.7 36.7 36.8 Pulse 90 90 112 90 Resp 18 16 18 16 B/P (MAP) 73/48 (56) 80/47 104/50 110/64 Pulse Ox 93 93 97 98 O2 Delivery Room Air Room Air Room Air Room Air 08/25/22 13:25 Pulse 93 Resp 18 B/P (MAP) 131/72 Pulse Ox 93 O2 Delivery Room Air Capillary Refill : Less Than 3 Seconds Blood Pressure Mean: 56 Progress Note : Progress Note Seen and evaluated. IV x2 ordered. Labs including CBC, CMP, UA, blood c ultures, lactic acid and type and cross for 2 units to hold ordered. Monitor patient. Normal saline 500 mL bolus ordered. Differential diagnosis includes anemia secondary to blood loss, GI bleed, UTI, sepsis, electrolyte abnormality, cancer related weakness. 0733: Blood pressures remain soft but are improving. I have ordered normal saline TKO with blood administration due to hemoglobin of 6.1 with white count of 7.6 and platelets at 33. Chemistries reviewed and electrolytes are normal overall and creatinine is 2.46 with glucose of 124. LFTs are in reasonable range. CRP is elevated at 8.11 but lactic acid is negative at 1.34. 0837: UA does show nitrite positive and there is trace bacteria. There is concerns for possible urinary tract infection. We will go ahead and initiate Rocephin 1 g IV. We have increased normal saline to 150 mL an hour and blood is running at 150 mL an hour right now as well. Blood pressures in the 80s systolic. I am very hesitant about initiating central line due to patient's very low platelets and bleeding disorder. He does have dialysis catheter in place. He does have peripheral AC line. I am considering pressors but we will see how blood and fluid do on this patient. Monitor pressure. 0915: I have reviewed his medica tion history from the detention and he is on hydrocortisone for adrenal insufficiency. I will go ahead and give a hydrocortisone dose of 100 mg IV now due to this and this may help his blood pressure further. I do anticipate transfer to [facility] if they have bed availability. We will continue to manage for stability. All of the findings and concerns were discussed with patient and his and daughter. They are in agreement with plan. I did review labs from [facility] and note that his hemoglobin was 8.3 2 days ago. I have looked at the chest x-ray and I do see right pleural effusion on my interpretation. Pending radiology review. 1012: I have made contact with [facility] in [place], [place]. I have reviewed all labs, urine and x- ray findings. I have also reviewed current therapy. Blood pressure currently 105/55 with heart rate of 90 and O2 sat mid 90s on room air. [facility] is currently full capacity but the triage nurse did take the information and they will review for possibility for acceptance to their especially given that he is undergoing the CAR-T cell therapy there. This was discussed with family who verbalized understanding. Overall he is doing a little better now but still has occasional bloody stool. Monitor patient. 1127: Patient has been accepted by Dr. Thomas at [facility] and we are pending callback for bed a ssignment. 1210: Bed assignment has been obtained. We will start working on transport. We do not have EMS transport capability until after 8 PM tonight. Monitor patient. 1233: Currently flight is unavailable due to weather. They will recheck in an hour and call us back. Monitor patient. 1245: Kristina has accepted transport. Patient remains stable at this point. 1325: Flight team here and patient is departing to . Diagnostic Imaging Diagonstic Imaging: Xray Plain Films/CT/US/NM/MRI: chest Comments [facility]. [place], [place] NAME: EDWAR LAWSON [facility] REC#: [id number] PT STATUS: REG ER : 1945 PHYSICIAN: XIOMY PALM MD ADMIT DATE: 08/25/22/ER Signed Date of Exam:08/25/22 CHEST 1 VIEW, AP/PA ONLY History: Hypotension COMPARISON: None TECHNIQUE: Frontal view the chest FINDINGS: There is a moderate right pleural effusion with associated airspace opacities. There is mild central vascular congestion. Mild airspace opacity seen in the left lung base. There is no pneumothorax. The right dual-lumen catheter tip projects over the low SVC. IMPRESSION: 1. Moderate right pleural effusion. Bibasilar airspace opacities may be due to atelectasis or edema. 2. Mild central vascular congestion. Dictated by: Dictated on workstation # [id number] Dict: 08/25/22 0850 Trans: 02/924 [facility] [id number] Interpreted by: YO WEINSTEIN MD Electronically signed by: YO WEINSTEIN MD 08/25/22924 Reviewed: Reviewed by Me Critical Care Note Critical Care Start Time: 06:25 Stop Time: 13:25 Total Time (minutes) 45 minutes excluding separately billable procedures. See progress note for details. Departure Impression Primary Impression: GI bleed Qualified Codes: K92.2 - Gastrointestinal hemorrhage, unspecified Additional Impressions: Thrombocytopenia Non-Hodgkin's lymphoma in adult Disposition: 02 XFER SHT-TRM HOSP Condition: Stable Transfer Transfer Reason: Exceeds level of care Time Spoke to Accepting Phy: 11:27 Transfer Time: 13:25 Transfer Facility: [place], [place], Dr. Thomas accepting. Method of Transfer: Air Departure-Patient Inst. Referrals: HALINA ANDERSEN DO (PCP/Family) Primary Care Physician XIOMY PALM MD Aug 25, 2022 06:39
[2022-08-25] MEDS ORDERED: NS IV 500 ML 500 ML IV ONE ×2 (06:45→09:15)
[2022-08-25 06:49] LABS: BASOPHILS % (AUTO) 0 % (0-10); EOSINOPHILS % (AUTO) 0 % (0-10); LYMPHOCYTES # (AUTO) 0.8 10^3/uL (1.0-4.0); LYMPHOCYTES % (AUTO) 11 % (12-44); MEAN CORPUSCULAR HEMOGLOBIN 30 pg (25-34); MEAN CORPUSCULAR HGB CONC 32 g/dL (32-36); MEAN CORPUSCULAR VOLUME 94 fL (80-99); MEAN PLATELET VOLUME 11.9 fL (9.0-12.2); MONOCYTES # (AUTO) 1.6 10^3/uL (0.0-1.0); MONOCYTES % (AUTO) 21 % (0-12); NEUTROPHILS % (AUTO) 66 % (42-75); WHITE BLOOD COUNT 7.6 10^3/uL (4.3-11.0)
[2022-08-25 06:50] LABS: ALBUMIN 2.2 GM/DL (3.2-4.5)
[2022-08-25 06:52] LABS: CALCIUM 7.6 MG/DL (8.5-10.1)
[2022-08-25 06:53] LABS: HEMOGLOBIN 6.1 g/dL (13.3-17.7); TOTAL PROTEIN 3.8 GM/DL (6.4-8.2)
[2022-08-25 06:54] LABS: HEMATOCRIT 19 % (40-54); PLATELET COUNT 33 10^3/uL (130-400)
[2022-08-25 06:55] LABS: BILIRUBIN,TOTAL 0.6 MG/DL (0.1-1.0)
[2022-08-25 06:57] LABS: CREATININE SERUM 2.46 MG/DL (0.60-1.30)
[2022-08-25 06:58] LABS: BILIRUBIN,URINE NEGATIVE (NEGATIVE); CLARITY,URINE CLEAR; COLOR,URINE YELLOW; GLUCOSE, URINE (UA) NEGATIVE (NEGATIVE); KETONES,URINE NEGATIVE (NEGATIVE); LEUKOCYTE ESTERASE ,URINE NEGATIVE (NEGATIVE); NITRITE,URINE POSITIVE (NEGATIVE); PROTEIN,URINE TRACE (NEGATIVE)
[2022-08-25 06:59] LABS: MAGNESIUM 1.6 MG/DL (1.6-2.4)
[2022-08-25 07:16] LABS: BACTERIA,URINE TRACE /HPF; RBC,URINE RARE /HPF
[2022-08-25 07:18] LABS: URIC ACID CRYSTALS,URINE RARE /LPF
[2022-08-25 07:27] LABS: BAND NEUTROPHILS 4 %; LYMPHOCYTES % (MANUAL) 11 %; MONOCYTES % (MANUAL) 14 %; NEUTROPHILS % (MANUAL) 71 %; NUCLEATED RED BLOOD CELLS 3
[2022-08-25 07:28] LABS: POLYCHROMASIA SLIGHT
[2022-08-25 07:29] LABS: ANISOCYTOSIS MODERATE; HYPOCHROMASIA SLIGHT; MICROCYTOSIS MODERATE
[2022-08-25] MEDS ORDERED: NS IV 500 ML 500 ML ONE (07:33)
[2022-08-25 07:47] VITALS: BP 80/47
[2022-08-25 08:02] VITALS: BP 104/50
[2022-08-25] MEDS ORDERED: cefTRIAXone 1 GM PRE-MIX 50 ML IV STA (08:37)
--- NOTE | 2022-08-25 08:54 | Diagnostic Imaging Report ---
History: Hypotension COMPARISON: None TECHNIQUE: Frontal view the chest FINDINGS: There is a moderate right pleural effusion with associated airspace opacities. There is mild central vascular congestion. Mild airspace opacity seen in the left lung base. There is no pneumothorax. The right dual-lumen catheter tip projects over the low SVC. IMPRESSION: 1. Moderate right pleural effusion. Bibasilar airspace opacities may be due to atelectasis or edema. 2. Mild central vascular congestion. Dictated by: Dictated on workstation # [id number]
[2022-08-25] MEDS ORDERED: HYDROCORTISONE 100 MG/2 ML (Solu-CORTEF) VIAL IV ONE (09:15)
[2022-08-25 10:30] VITALS: BP 110/64
[2022-08-25 13:25] VITALS: BP 131/72
== END 2022-08-25 13:25 | disposition short-term general hospital (02) ==
LOC: EDUNIT# 06:17 → ER 06:19
DX: K92.2 Gastrointestinal hemorrhage, unspecified (principal); C85.90 Non-Hodgkin lymphoma, unspecified, unspecified site; D69.6 Thrombocytopenia, unspecified; R79.82 Elevated C-reactive protein (CRP); J90 Pleural effusion, not elsewhere classified; E27.40 Unspecified adrenocortical insufficiency; E11.9 Type 2 diabetes mellitus without complications; Z79.4 Long term (current) use of insulin; Z79.890 Hormone replacement therapy; Z90.49 Acquired absence of other specified parts of digestive tract
CPT/HCPCS: 71045; 80053; 81000; 82947; 83605; 83735; 85007; 85027; 86141; 86850; 86900; 86901; 86920; 87040; 87077; 87088; 87181; 87184; 96365; 96375; 99285; P9016; 36415

== ENCOUNTER → 2022-10-07 | Emergency (ER) | payer MEDICARE ==
[~2022-10-07] VITALS: Ht 185 cm; Wt 100.0 kg
[~2022-10-07] MED LIST changes: +AMIODARONE FOR BOLUS 150 MG in NS (IVPB) 100 ML IV ONE; +AMIODARONE INJECTION 450 MG in NORMAL SALINE 250 ML IV SCH; +ETOMIDATE IV SOLN 20 MG/10 ML VIAL IV ONE; +MIDAZOLAM 5 MG/5 ML (VERSED) VIAL INJ ONE; +NOREPINEPHRINE 8 MG/250 ML 250 ML IV ONE; +NS (IVPB) 100 ML ONE; +NS (IVPB) 250 ML IV ONE; +PIPERACILLIN SODIUM/TAZOBACTAM 4.5 GM in NS (IVPB) 100 ML IV ONE; +PROPOFOL DRIP (ICU) 100 ML IV ONE; +ROCURONIUM 50 MG/5 ML (ZEMURON) VIAL IV ONE; +RT-ALBUTEROL SULF 2.5 MG/3 ML PRE-MIX VIAL INH ONE; +VANCOMYCIN INJECTION 1,000 MG in NS (IVPB) 250 ML IV ONE; +VASOPRESSIN (PYXIS DRIP KIT) 20 UNIT/1 ML VIAL ONE; +VASOPRESSIN INJECTION 20 UNIT in NS (IVPB) 100 ML IV SCH; +fentaNYL INJ 100 MCG/2 ML AMP IV ONE
[2022-10-07 22:13] LABS: BASOPHILS % (AUTO) 0 % (0-10); EOSINOPHILS % (AUTO) 0 % (0-10)
[2022-10-07 22:15] LABS: HEMATOCRIT 28 % (40-54); HEMOGLOBIN 9.1 g/dL (13.3-17.7); LYMPHOCYTES # (AUTO) 0.3 10^3/uL (1.0-4.0); LYMPHOCYTES % (AUTO) 13 % (12-44); MEAN CORPUSCULAR HEMOGLOBIN 31 pg (25-34); MEAN CORPUSCULAR HGB CONC 33 g/dL (32-36); MEAN CORPUSCULAR VOLUME 96 fL (80-99); MONOCYTES # (AUTO) 0.3 10^3/uL (0.0-1.0); MONOCYTES % (AUTO) 13 % (0-12); NEUTROPHILS # (AUTO) 1.8 10^3/uL (1.8-7.8); NEUTROPHILS % (AUTO) 71 % (42-75); WHITE BLOOD COUNT 2.5 10^3/uL (4.3-11.0)
[2022-10-07 22:17] LABS: PLATELET COUNT 20 10^3/uL (130-400); SMEAR SCAN COMMENT YES
[2022-10-07 22:18] VITALS: BP 60/51
[2022-10-07 22:21] LABS: ALBUMIN 2.9 GM/DL (3.2-4.5)
[2022-10-07 22:22] LABS: POTASSIUM 4.2 MMOL/L (3.6-5.0)
[2022-10-07 22:23] LABS: CALCIUM 9.2 MG/DL (8.5-10.1)
[2022-10-07 22:24] LABS: TOTAL PROTEIN 5.7 GM/DL (6.4-8.2)
--- NOTE | 2022-10-07 22:24 | ED General ---
General Chief Complaint: Respiratory Problems Stated Complaint: SOA Source of Information: EMS Exam Limitations: Physical Impairments History of Present Illness Date Seen by Provider: Oct 07, 2022 Time Seen by Provider: 21:30 Initial Comments Patient is a 76-year-old male who presents to the emergency room from a local alf impending respiratory failure. He was brought in by EMS after the alf called for hypoxia post emesis. The patient is unable to provide any HPI, review of systems, past medical family or social history due to extremis. Quick review of the alf records and the patient indicates that he is a hemodialysis patient. I spoke very briefly with his to ensure that he would want "full measures" to include intubation and CPR if necessary. As the patient was impending respiratory failure it was decided to emergently intubate to protect his airway. Patient was supplemented with 15 L by simple facemask and then bagged. Was initially in the 60s on 5 L per nasal cannula. Initially noted to be bradycardic in the 40s. Once adequate oxygenation was a chieved the patient's heart rate crept up into the 90s. Blood pressure 105 systolic. He was only able to provide one-word answers. I believe he is unreliable secondary to his hypoxic state. Patient was intubated with a glide scope, 80 ET tube after 1 attempt. Copious green vomitus in the posterior pharynx with intubation. Breath sounds grossly rhonchus throughout. Abdomen firm, distended, no bowel sounds. Timing/Duration: Other (Unsure) Allergies and Home Medications Allergies Coded Allergies: levofloxacin (Verified Allergy, Mild, VOMITING, 03/10/14) Patient Home Medication List Home Medication List Reviewed: Yes Allopurinol (Allopurinol) 300 Mg Tablet, 300 MG PO HS, (Reported) Entered as Reported by: JOSEPHINE STERN on 10/16/21 110 Amlodipine Besylate (Amlodipine Besylate) 10 Mg Tablet, 10 MG PO HS, (Reported) Entered as Reported by: JOSEPHINE STERN on 10/16/21 110 Atorvastatin Calcium (Atorvastatin Calcium) 40 Mg Tablet, 40 MG PO HS, (Reported) Entered as Reported by: JOSEPHINE STERN on 10/16/211101 Doxazosin Mesylate (Doxazosin Mesylate) 8 Mg Tablet, 8 MG PO HS, (Reported) Entered as Reported by: JOSEPHINE STERN on 10/16/21 110 Insulin Glargine,Hum.rec.anlog (Lantus Solostar) 100 Unit/1 Ml Insuln.pen, 35 UNIT SQ HS, (Reported) Entered as Reported by: JOSEPHINE STERN on 10/16/211101 Sitagliptin Phosphate (Januvia) 50 Mg Tablet, 50 MG PO HS, (Reported) Entered as Reported by: JOSEPHINE STERN on 10/16/211101 Review of Systems Review of Systems Constitutional: see HPI unable to obtain due to patient's extremis Past Enrjsre-Hhfwbe-Pujsfl Hx Immunizations Up To Date First/Initial COVID19 Vaccinat: yes Second COVID19 Vaccination Saravanan: yes Third COVID19 Vaccination Date: NO Seasonal Allergies Seasonal Allergies: No Past Medical History Surgery/Hospitalization HX: LEUKEMIA, ST 3 RENAL DISEASE, IDDM, HTN, GOUT, HD M,W,F Surgeries: Yes (BACK SURGERY, INGHERNIA REPAIR) Appendectomy Respiratory: No Cardiac: Yes Hypertension Neurological: No Reproductive Disorders: No Sexually Transmitted Disease: No Genitourinary: Yes Renal Failure Gastrointestinal: Yes Polyps Musculoskeletal: Yes Gout Endocrine: Yes Diabetes, Insulin dep Cancer: Yes (NON-HODGKINS) Lymphoma Psychosocial: No Integumentary: No Blood Disorders: No Adverse Reaction/Blood Tranf: No Family Medical History Neoplasm Physical Exam Vital Signs Vital Signs - First Documented 10/07/22 21:35 Temp 36.4 Pulse 43 Resp 18 B/P (MAP) 95/51 (66) Pulse Ox 80 O2 Delivery Nasal Cannula O2 Flow Rate 15.00 FiO2 100 Capillary Refill : Height, Weight, BMI Height: 5'11.00" Weight: 210lbs. oz. [id number]; 28.00 BMI Method:Stated General Appearance: Chronically ill, Severe Distress HEENT: Other (moist mucous membranes) Neck: JVD Respiratory: Crackles (throughout), Respiratory Distress, Other (hypoxic) Cardiovascular: Normal Peripheral Pulses, Bradycardia (40's) Gastrointestinal: Distended, Other (firm. no bowel sounds; Tympanic) Genital/Rectal: Other (meatal abnormality - simmons in place CARBONIZER TESTER) Extremity: Normal Inspection Neurologic/Psychiatric: Other (profound distress; poor respiratory effort. Attempts to answer - one word; struggles audible upper respiratory fluids) Skin: Cool, Pallor Focused Exam Sepsis Stage: Septic Shock Lactate Level 10/07/22 21:35: Lactic Acid Level 1.63 Time of Focused Exam: 00:30 Respiratory: Crackles Cardiovascular: Regular Rate, Rhythm (90's), Normal Peripheral Pulses (1+ radial) Capillary Refill: Less Than 3 Seconds Peripheral Pulses: 1+ Radial Pulses (R), 1+ Radial Pulses (L) Skin: normal color, warm/dry Lactic Acid Level Laboratory Tests Test 10/07/22 21:35 Lactic Acid Level 1.63 MMOL/L (0.50-2.00) Within 3hrs of presentation: Admin fluids, Admin ABX, Blood cultures prior to ABX's, Focus exam, Lactate level, Vasopressin therapy Procedures/Interventions Lumen: triple Central Line Procedure: betadine prep, sterile drapes applied, sterile dressing applied Position: femoral (R) Complications: none Post Position: sutured, good blood return no complications; bedside ultrasound utilized Date of ETT Placement: Oct 07, 2022 Intubation Method: orotracheal Tube Size: 8 Medications: Etomidate, Rocuronium Positive End Tide CO2: Yes Breath Sounds after Intubation: bilateral-equal Intubation Complications: vomited, apparent aspiration, O2 saturation decreased Post Intubation Xray: Yes complete opacification bilateral lungs; ETT in place; OG tube in place Progress/Results/Core Measures Suspected Sepsis SIRS Temperature: Pulse: 97 Respiratory Rate: Laboratory Tests 10/07/22 21:35: White Blood Count 2.5L Blood Pressure 64 /50 Mean: 55 10/07/22 21:35: Lactic Acid Level 1.63 Laboratory Tests 10/07/22 21:35: Creatinine 2.32H, INR Comment 1.1, Platelet Count 20*L, Total Bilirubin 0.3 10/08/22 01:08: Creatinine 2.24H Results/Orders Lab Results Laboratory Tests Test 10/07/22 21:35 10/07/22 21:38 10/07/22 23:27 10/08/22 01:08 Range/Units White Blood Count 2.5 L 4.3-11.0 10^3/uL Red Blood Count 2.89 L 4.30-5.52 10^6/uL Hemoglobin 9.1 L 13.3-17.7 g/dL Hematocrit 28 L 40-54 % Mean Corpuscular Volume 96 80-99 fL Mean Corpuscular Hemoglobin 31 25-34 pg Mean Corpuscular Hemoglobin Concent 33 32-36 g/dL Red Cell Distribution Width 18.5 H 10.0-14.5 % Platelet Count 20 *L 130-400 10^3/uL Mean Platelet Volume 9.0-12.2 fL Immature Granulocyte % (Auto) 3 % Neutrophils (%) (Auto) 71 42-75 % Lymphocytes (%) (Auto) 13 12-44 % Monocytes (%) (Auto) 13 H 0-12 % Eosinophils (%) (Auto) 0 0-10 % Basophils (%) (Auto) 0 0-10 % Neutrophils # (Auto) 1.8 1.8-7.8 10^3/uL Lymphocytes # (Auto) 0.3 L 1.0-4.0 10^3/uL Monocytes # (Auto) 0.3 0.0-1.0 10^3/uL Eosinophils # (Auto) 0.0 0.0-0.3 10^3/uL Basophils # (Auto) 0.0 0.0-0.1 10^3/uL Immature Granulocyte # (Auto) 0.1 0.0-0.1 10^3/uL Percent Immature Platelet Fraction 9.5 H 0.0-7.6 % Prothrombin Time 14.7 12.2-14.7 SEC INR Comment 1.1 0.8-1.4 Activated Partial Thromboplast Time 38 H 24-35 SEC Sodium Level 128 L 128 L 135-145 MMOL/L Potassium Level 4.2 3.6 3.6-5.0 MMOL/L Chloride Level 90 L 92 L 98-107 MMOL/L Carbon Dioxide Level 24 22 21-32 MMOL/L Anion Gap 14 14 5-14 MMOL/L Blood Urea Nitrogen 67 H 66 H 7-18 MG/DL Creatinine 2.32 H 2.24 H 0.60-1.30 MG/DL Estimat Glomerular Filtration Rate 28 29 BUN/Creatinine Ratio 29 29 Glucose Level 164 H 179 H 70-105 MG/DL Lactic Acid Level 1.63 0.50-2.00 MMOL/L Calcium Level 9.2 8.5 8.5-10.1 MG/DL Corrected Calcium 10.1 8.5-10.1 MG/DL Magnesium Level 1.8 1.6-2.4 MG/DL Total Bilirubin 0.3 0.1-1.0 MG/DL Aspartate Amino Transf (AST/SGOT) 19 5-34 U/L Alanine Aminotransferase (ALT/SGPT) 19 0-55 U/L Alkaline Phosphatase 130 40-136 U/L Total Protein 5.7 L 6.4-8.2 GM/DL Albumin 2.9 L 3.2-4.5 GM/DL Smear Scan YES Glucometer 154 H 70-110 MG/DL Blood Gas Puncture Site LR Blood Gas Patient Temperature UNK Arterial Blood pH 7.32 *L 7.37-7.43 Arterial Blood Partial Pressure CO2 51 H 35-45 MMHG Arterial Blood Partial Pressure O2 138 H 79-93 MMHG Arterial Blood HCO3 26 23-27 MMOL/L Arterial Blood Total CO2 27.2 21.0-31.0 MMOL/L Arterial Blood Oxygen Saturation 98 94-100 % Arterial Blood Base Excess 0.3 -2.5-2.5 MMOL/L Gabo Test YES-POS Blood Gas Ventilator Setting YES Blood Gas Inspired Oxygen 70% Micro Results Microbiology 10/07/22 Blood Culture - Preliminary, Resulted Gram Positive Cocci in Cluster See Comments My Orders Orders - SHASHI FRANK MD Norepinephrine 8 Mg/250 Ml (Norepinephri (10/07/22 21:48) Cbc With Automated Diff (10/07/22 22:02) Comprehensive Metabolic Panel (10/07/22 22:02) Blood Culture (10/07/22 22:02) Sputum Culture (10/07/22 22:02) Protime With Inr (10/07/22 22:02) Partial Thromboplastin Time (10/07/22 22:02) Chest 1 View, Ap/Pa Only (10/07/22 22:02) Ed Iv/Invasive Line Start (10/07/22 22:02) Ed Iv/Invasive Line Start (10/07/22 22:02) Ekg Tracing (10/07/22 22:02) Vital Signs Adult Sepsis Patie Q15M (10/07/22 22:02) O2 (10/07/22 22:02) Remove Rings In Anticipation O (10/07/22 22:02) Lactic Acid Analyzer (10/07/22 22:02) Ct Chest/Abdomen/Pelvis Wo (10/07/22 22:18) Ns (Ivpb) (Sodium Chloride 0.9%) (10/07/22 22:30) Propofol Drip (Icu) (Diprivan Drip (Icu) (10/07/22 22:30) Arterial Blood Gas (10/07/22 23:20) Magnesium (10/07/22 23:46) Piperacillin Sodium/Tazobactam (Zosyn Vi (10/08/22 00:30) Vancomycin Injection (Vancomycin Injecti (10/08/22 00:30) Amiodarone Injection (Cordarone Injectio (10/08/22 00:45) Amiodarone For Bolus (Cordarone Bolus) (10/08/22 00:45) Ns (Ivpb) (Sodium Chloride 0.9%) (10/08/22 00:45) Basic Metabolic Panel (10/08/22 01:01) Accucheck Stat ONCE (10/08/22 01:01) Ekg Tracing (10/08/22 01:01) Communication For Respiratory (10/08/22 01:07) Albuterol Pre-Mix Nebs (Rt) (Proventil (10/08/22 01:15) Svn Small Volume Nebulizer (10/08/22 01:07) Norepinephrine 8 Mg/250 Ml (Norepinephri (10/08/22 01:27) Vasopressin Injection (Pitressin Injecti (10/08/22 02:15) Vasopressin (Pyxis Drip Kit) (Vasopressi (10/08/22 02:18) Ns (Ivpb) (Sodium Chloride 0.9% Ivpb Bag (10/08/22 02:19) Medications Given in ED Vital Signs/I&O 10/07/22 10/07/22 10/07/22 10/07/22 21:35 21:35 22:00 22:18 Temp 36.4 Pulse 43 97 93 Resp 18 18 B/P (MAP) 95/51 (66) 64/50 Pulse Ox 80 80 100 O2 Delivery Nasal Cannula Nasal Cannula O2 Flow Rate 15.00 FiO2 100 100 10/07/22 10/08/22 23:53 01:11 Pulse 92 90 B/P (MAP) 102/65 Capillary Refill : Blood Pressure Mean: 55 Progress Note #1: Time: 00:25 Progress Note Patient seen and examined by me. 76-year-old from local alf after aspiration, profoundly hypoxic, hypotensive and bradycardic. Evaluation today includes physical exam, septic work-up with CBC, Chem-12, lactic acid, coags, urinalysis, chest x-ray, blood cultures, CT of the chest and abdomen and pelvis without contrast. Physical exam pertinent for ill-appearing 76-year-old in profound respiratory distress. Bradycardic, hypotensive and hypoxic. Big distended tympanic abdomen without bowel sounds. Poor lung sounds with diffuse crackles throughout. Edema in the bilateral lower extremities. Simmons catheter in place prior to arrival. Vascular access catheter right upper chest that is not erythematous or draining. Dry mucous membranes. Differential diagnosis based on history and physical, ruptured abdominal viscus, pneumonia/septic shock/urosepsis. Multiple etiologies considered. Patient immediately evaluated for respiratory support. Intubated with glide scope after etomidate and rocuronium 80 ET tube. Patient immediately regurgitated copious amounts of green liquid into the oropharynx. We suctioned approximately 600 cc after intubation via NG tube. Patient heart rate improved once he was intubated into the 90s. Nor epi started peripherally while preparations for central line were made. Right groin accessed. No complications. As vital signs improved, labs returned, CBC pertinent for white count of 2 (the patient is recently post CAR-T treatment), hemoglobin of 9, platelet count of 20. Chemistry remarkable for slightly low sodium at 128. Normal electrolytes otherwise, chronic renal failure with a creatinine a little over 2. Lactic Acid level 2.63. Urinalysis pending at the time of this dictation still. Chest x-ray independently interpreted by me bilateral opacification of all lung johnson. ET tube appears in good position. Vascular access catheter right upper chest in good position. OG tube in good position. CT scan of the abdomen and pelvis and chest without contrast shows diffuse ascites. Read per radiologist is still pending at the time of this dictation. Progress Note #2: Time: 01:02 Progress Note Case discussed with [facility], accepted by SIERRA Sousa on behalf of Dr. Lerner, city councilman. Notified by SIERRA Saenz patient's nurse here in the emergency department that the patient's rhythm has changed. He is having short runs of V. tach. Decision made to bolus amiodarone at 150 mg with a drip following. Every time he has these short runs of V. tach his pressure drops into the 70s and 80s. Levophed running at 0.4 mics per kilo per minute currently. There was a delay in a ntibiotics, verbal order had been given earlier for Zosyn shortly after intubation however due to multiple other critical patients and multiple nursing interventions on this patient, Zosyn was delayed. Patient now with BP in the 70's and sats to 88%. Re-examined, wheezing. Will have RT come eval and possibly do albuterol and suction. [facility] notified. ECG Initial ECG Impression Date: Oct 07, 2022 Initial ECG Impression Time: 22:25 Initial ECG Rate: 88 Initial ECG Intervals TN interval 169 QRS 162 QTc 518 Comment Wide-complex normal sinus rhythm without ST segment elevation or depression, diffuse nonspecific ST-T wave changes Diagnostic Imaging Diagonstic Imaging: Xray Plain Films/CT/US/NM/MRI: chest Comments independent interpretation by me - complete opacification bilateral lungs. ETT in place, seems to be in good position; OGT in place - stomach. Vascular access catheter in right chest Diagonstic Imaging: CT Plain Films/CT/US/NM/MRI: abdomen, pelvis Comments independent interpretation by me - copious ascitic fluid Critical Care Note Critical Care Start Time: 21:30 Stop Time: 00:13 Total Time (minutes) 1 hour critical care time in evaluation and management of this patient in acute respiratory failure/sepsis/aspiration pneumonia. Time includes initial evaluation, immediate airway management with supplemental oxygen, discussion with family who provides independent history, review of hospital medical records, review and interpretation of labs and imaging studies. Fluid resuscitation small normal saline bolus, blood pressure management with pressors, antibiotic administration, time does not include that spent in procedures intubation and vascular access. Departure Impression Primary Impression: Aspiration pneumonia due to vomit Qualified Codes: J69.0 - Pneumonitis due to inhalation of food and vomit Additional Impression: Septic shock Disposition: XFER SHT-TRM HOSP Condition: Critical Transfer Transfer Reason: Exceeds level of care Time Spoke to Accepting Phy: 23:45 Transfer Progress Notes Discussed with SIERRA Sousa transfer; accepts on behalf of Dr Lerner Transfer Time: 02:00 Transfer Facility: [facility] Method of Transfer: Air Departure-Patient Inst. Referrals: HALINA ANDERSEN DO (PCP/Family) Primary Care Physician Copy Copies To 1: HALINA ANDERSEN V DO; SHITAL YOON KATHRYN M MD Oct 07, 2022 22:24
[2022-10-07 22:26] LABS: BILIRUBIN,TOTAL 0.3 MG/DL (0.1-1.0); INR 1.1 (0.8-1.4); PROTHROMBIN TIME PATIENT 14.7 SEC (12.2-14.7)
[2022-10-07 22:28] LABS: CREATININE SERUM 2.32 MG/DL (0.60-1.30)
[2022-10-07 23:36] LABS: ABG BASE EXCESS 0.3 MMOL/L (-2.5-2.5); ABG OXYGEN SATURATION 98 % (94-100); ABG PCO2 51 MMHG (35-45); ABG PO2 138 MMHG (79-93); ABG TCO2 27.2 MMOL/L (21.0-31.0)
[2022-10-07 23:37] LABS: ALLENS TEST YES-POS; INSPIRED O2 70%; VENTILATOR YES
[2022-10-07 23:38] LABS: ABG PH 7.32 (7.37-7.43)
[2022-10-07 23:53] VITALS: BP_DIAS 65
[2022-10-08 01:11] VITALS: BP_SYST 74
[2022-10-08 01:28] LABS: POTASSIUM 3.6 MMOL/L (3.6-5.0)
[2022-10-08 01:29] LABS: CALCIUM 8.5 MG/DL (8.5-10.1)
[2022-10-08 01:33] LABS: CREATININE SERUM 2.24 MG/DL (0.60-1.30)
--- NOTE | 2022-10-08 08:19 | Diagnostic Imaging Report ---
INDICATION: Shortness of breath Portable chest 10:19 PM ET tube projects over the trachea. NG tube enters the stomach. Right IJ central tip projects over the SVC. There are bilateral pleural effusions with increased density in both lungs that is probably due to effusions plus some infiltrate and/or atelectasis. IMPRESSION: Increasing bilateral pleural effusions. Increasing lung density could be combination of infiltrate, atelectasis and/or effusion. Dictated by: Dictated on workstation # [id number]
--- NOTE | 2022-10-08 08:54 | Diagnostic Imaging Report ---
PROCEDURE: CT chest, abdomen, and pelvis without contrast. TECHNIQUE: Multiple contiguous axial images were obtained through the chest, abdomen, and pelvis without the use of intravenous contrast. Auto Exposure Controls were utilized during the CT exam to meet ALARA standards for radiation dose reduction. INDICATION: Respiratory distress. Vomiting. Sepsis. History of lymphoma. History of kidney transplant on dialysis. COMPARISON: 05/12/2018. FINDINGS: CT CHEST: The heart size is within normal limits. No pericardial effusion is present. There is no mediastinal, hilar, or axillary lymphadenopathy. Endotracheal and enteric tubes are in place. A right-sided dialysis catheter is seen with the tip in the cavoatrial juncture. Bilateral large pleural effusions are seen with dependent atelectasis in the bilateral lungs. There is complete opacification of the bilateral lower lobes and right middle lobe due to atelectasis. No pneumothorax. No acute osseous abnormalities. CT ABDOMEN AND PELVIS: A cortical cyst is seen in the mid right kidney. No evidence of hydronephrosis. The urinary bladder is decompressed with a Mojica in place. The liver, spleen, pancreas, and adrenal glands have a normal noncontrast CT appearance. Gallstones are seen within the gallbladder lumen. There is no pathologically enlarged mesenteric or retroperitoneal adenopathy. The bowel loops are nondilated. Diverticula are seen in the sigmoid colon without evidence of acute diverticulitis. A large volume of ascites is seen in the abdomen and pelvis. No free air. No acute osseous abnormalities. Chronic height loss is seen at L1 and L3. There is calcified aortic and iliac atherosclerotic plaque without aneurysm. There is no free air, loculated collection, or adenopathy in the pelvis. IMPRESSION: 1. Large bilateral pleural effusions with complete atelectasis of the right middle lobe and bilateral lower lobes. 2. Large volume of ascites in the abdomen and pelvis. 3. Cholelithiasis. 4. Diverticula in the sigmoid colon. Agree with overnight report. Dictated by: Dictated on workstation # [id number]
== END ==
LOC: EDUNIT# 21:29 → ER 21:33
DX: J69.0 Pneumonitis due to inhalation of food and vomit (principal); A41.9 Sepsis, unspecified organism; R65.21 Severe sepsis with septic shock; J96.00 Acute respiratory failure, unspecified whether with hypoxia or hypercapnia
CPT/HCPCS: 36415; 71045; 71250; 74176; 80053; 82805; 82947; 83605; 83735; 85025; 85610; 85730; 87040; 93005; 94002; 94799